=== PATIENT | female | born 1950 | race African-American/Black ===

== ENCOUNTER → 2016-11-07 | Outpatient (CLI) | payer BC ==
[~2016-11-07] MED LIST: ACET-1256 PO; ALBUAER2 INH; ASPI325T39 PO; CHOL2000 PO; CLR10 PO; FLUT0.15; IBUP-1050 PO; MOME1AER5 INH; MONT1TAB3 PO; MULT-506 PO; SIMV20TA2 PO
--- NOTE | 2016-11-08 13:19 | MAMMOGRAPHY REPORT ---
BILATERAL DIGITAL SCREENING MAMMOGRAM TOMOSYNTHESIS WITH CAD: 11/07/2016 CLINICAL HISTORY: Routine screening. TECHNIQUE: Breast tomosynthesis in addition to standard 2D mammography was performed. Current study was also evaluated with a Computer Aided Detection (CAD) system. COMPARISON: Comparison is made to exams dated: 11/03/2015 mammogram, 10/31/2014 mammogram, 10/30/2013 m ammogram, 10/29/2012 mammogram, 10/27/2011 mammogram, and 10/25/2010 mammogram - [facility]. BREAST COMPOSITION: The tissue of both breasts is heterogeneously dense, which may obscure small ma sses. FINDINGS: Linear scar markers overlie the right upper outer quadrant and left inferior breast. The parenchymal pattern is similar to prior mammograms area there are minimal vascular calcifications an d scattered benign-appearing punctate microcalcifications in the breasts. No developing mass, archi tectural distortion or cluster of suspicious microcalcifications is seen. IMPRESSION: ACR BI-RADS CATEGORY 2: BENIGN There is no mammographic evidence of malignancy. A 1 year screening mammogram is recommended. The p atient will receive written notification of the results. Approximately 10% of breast cancers are not detected with mammography. A negative mammographic repor t should not delay biopsy if a clinically suggestive mass is present. Adelina Land M.D. ay/:11/07/2016 17:21:45 Director Of Operations For Therapy: Shaneka HARRIS)(Rey), [facility] letter sent: Normal 1/2 BI-RADS Code: ACR BI-RADS Category 2: Benign
== END | disposition home or self-care (01) ==
LOC: C.MAMM 09:26
PROVIDERS: ATTEND Family Medicine
DX: Z12.31 Encounter for screening mammogram for malignant neoplasm of breast (principal)

== ENCOUNTER → 2017-03-23 | Outpatient (CLI) | payer BC ==
--- NOTE | 2017-03-23 09:27 | DIAGNOSTIC IMAGING REPORT ---
PELVIC ULTRASOUND, TRANSABDOMINAL AND TRANSVAGINAL HISTORY: Right lower quadrant of the middle pain. COMPARISON: Pelvic ultrasound 05/29/2015. FINDINGS: Uterus: 6.8 x 4.6 x 3.7 cm. Hyperechoic lesion within the posterior wall of the uterus measuring 1.4 cm. This demonstrates posterior shadowing and likely represents a calcified fibroid. There is a 6 mm nabothian cyst. Endometrial stripe: Normal in thickness measuring 2 mm. This contains a trace amount of fluid, unchanged. There may be a few small echogenic nodules with the endometrium measuring up to 3 mm. These are best in image 15. Right ovary: Obscured by overlying bowel gas. Left ovary: Obscured by overlying bowel gas. Miscellaneous:No pelvic free fluid. IMPRESSION: 1. A 1.4 cm calcified uterine fibroid is again noted. 2. Endometrial stripe is normal in thickness and contains a trace amount of fluid which is unchanged. There may be a few small echogenic nodules/debris within the endometrium measuring up to 3 mm. Gynecologic consultation and/or 3 month follow-up can be performed for further evaluation. 3. The ovaries were not visualized due to overlying bowel gas. Electronically signed by: Delfino Schafer M.D. 03/23/2017 9:26 AM Dictated Date/Time: 03/23/2017 9:22 AM
--- NOTE | 2017-03-23 09:30 | DIAGNOSTIC IMAGING REPORT ---
ABDOMINAL ULTRASOUND COMPLETE HISTORY: Right lower quadrant abdominal pain.. COMPARISON: None. FINDINGS: Pancreas: The pancreatic tail is obscured by overlying bowel gas. The remaining portions of the pancreas are within normal limits. Liver: There is a 1.6 x 1.4 x 1.3 cm hyperechoic lesion within the right hepatic lobe. This especially indeterminate but statistically represents a hemangioma. This demonstrates mild posterior acoustic enhancement. Gallbladder: There are 2 polyps with the largest measuring 9 mm. No gallstones. No gallbladder wall thickening. CBD: 4 mm. Kidneys: No hydronephrosis. Spleen: Normal in size. Aorta: Normal in caliber. IVC: Patent. IMPRESSION: 1. There are 2 gallbladder polyps with the largest measuring 9 mm. No gallbladder wall thickening. No gallstones. 2. A 1.6 cm hyperechoic lesion within the right hepatic lobe. This is technically indeterminate but likely represents a hemangioma. Electronically signed by: Delfino Schafer M.D. 03/23/2017 9:28 AM Dictated Date/Time: 03/23/2017 9:26 AM
== END | disposition home or self-care (01) ==
LOC: C.ULTR 07:54
PROVIDERS: ATTEND Family Medicine
DX: R10.11 Right upper quadrant pain (principal); R10.31 Right lower quadrant pain; R14.0 Abdominal distension (gaseous); Z83.79 Family history of other diseases of the digestive system; K82.4 Cholesterolosis of gallbladder; K76.9 Liver disease, unspecified; D25.9 Leiomyoma of uterus, unspecified

== ENCOUNTER → 2017-10-24 | Outpatient (CLI) | payer BC ==
[~2017-10-24] MED LIST changes: +CHOL1000 PO; +FLUT1SPR12 NAE; +HYDR25TA5 PO; +VNTHFA/IN INH
--- NOTE | 2017-10-24 09:44 | DIAGNOSTIC IMAGING REPORT ---
RIGHT THIRD FINGER 3 VIEWS CLINICAL HISTORY: Right third finger pain COMPARISON: None. DISCUSSION: No acute fractures are visualized. There is joint space narrowing and osteophyte formation at the level the distal interphalangeal joint. There is no erosive disease. IMPRESSION: 1. Osteoarthritic changes most pronounced the level of the distal interphalangeal joint. No evidence of erosive disease 2. No acute fractures Electronically signed by: Kirby Sandoval M.D. 10/24/2017 9:42 AM Dictated Date/Time: 10/24/2017 9:39 AM
== END | disposition home or self-care (01) ==
LOC: C.RAD1850 09:21
PROVIDERS: ATTEND Nurse Practitioner Family
DX: M79.644 Pain in right finger(s) (principal)

== ENCOUNTER → 2017-10-25 | Outpatient (CLI) | payer BC ==
--- NOTE | 2017-10-25 10:34 | DIAGNOSTIC IMAGING REPORT ---
R EXTREMITY NONVASCULAR LIMITED CLINICAL HISTORY: 67 years-old Female presenting with FOREIGN BODY IN RT MIDDLE FINGER. TECHNIQUE: Real-time grayscale Doppler ultrasound imaging of the right third finger was performed for a focused evaluation at the site of clinical concern. COMPARISON: Plain radiographs of the right third finger from the previous day. FINDINGS: At the site of clinical interest along the distal aspect of the right third finger, a linear hyperechogenic nonshadowing 5 mm foreign body is evident in the subcutaneous tissue. No surrounding fluid. No focal fluid collection. IMPRESSION: 1. Foreign body within the subcutaneous tissue of the distal right third finger at the site of clinical concern. Electronically signed by: Carlos Phan M.D. 10/25/2017 10:33 AM Dictated Date/Time: 10/25/2017 10:30 AM
== END | disposition home or self-care (01) ==
LOC: C.ULTRBC 09:43
PROVIDERS: ATTEND Student in an Organized Health Care Education/Training Program
DX: S60.452A Superficial foreign body of right middle finger, initial encounter (principal); X58.XXXA Exposure to other specified factors, initial encounter

== ENCOUNTER → 2017-11-08 | Outpatient (CLI) | payer BC ==
[~2017-11-08] MED LIST changes: -ACET-1256 PO; -ALBUAER2 INH; +ASPECOTC PO; -ASPI325T39 PO; -CHOL2000 PO; -FLUT0.15; -IBUP-1050 PO
--- NOTE | 2017-11-08 15:13 | MAMMOGRAPHY REPORT ---
BILATERAL DIGITAL SCREENING MAMMOGRAM TOMOSYNTHESIS WITH CAD: 11/08/2017 CLINICAL HISTORY: Routine screening. Patient has no complaints. TECHNIQUE: Breast tomosynthesis in addition to standard 2D mammography was performed. Current study was also evaluated with a Computer Aided Detection (CAD) system. COMPARISON: Comparison is made to exams dated: 11/07/2016 mammogram, 11/03/2015 mammogram, 10/31/2014 m ammogram, 10/30/2013 mammogram, 10/29/2012 mammogram, and 10/27/2011 mammogram - [facility]. BREAST COMPOSITION: The tissue of both breasts is heterogeneously dense, which may obscure small mas ses. FINDINGS: No suspicious masses, calcifications, or areas of architectural distortion are noted in ei ther breast. There has been no significant interval change compared to prior exams. IMPRESSION: ACR BI-RADS CATEGORY 1: NEGATIVE There is no mammographic evidence of malignancy. A 1 year screening mammogram is recommended. The pa tient will receive written notification of the results. Approximately 10% of breast cancers are not detected with mammography. A negative mammographic report should not delay biopsy if a clinically suggestive mass is present. Rhianna Rivera M.D. ah/:11/08/2017 12:27:15 Garbage Worker: Carmella ENRIQUEZ(Laz)(M), [facility] letter sent: Normal 1/2 BI-RADS Code: ACR BI-RADS Category 1: Negative
== END | disposition home or self-care (01) ==
LOC: C.MAMM 09:22
PROVIDERS: ATTEND Family Medicine
DX: Z12.31 Encounter for screening mammogram for malignant neoplasm of breast (principal)

== ENCOUNTER → 2017-11-08 | Outpatient (CLI) | payer BC | END | disposition home or self-care (01) | LOC: C.CPL 10:08 | PROVIDERS: ATTEND Physician Assistant | DX: S60.45 Superficial foreign body of fingers (principal); X58.XXXD Exposure to other specified factors, subsequent encounter ==

== ENCOUNTER → 2017-11-10 | Day surgery (SDC) | payer BC ==
[2017-11-03 12:36] VITALS: Ht 166.4 cm; Wt 68.2 kg
[~2017-11-10] VITALS: Ht 166.4 cm; Wt 68.2 kg
[~2017-11-10] MED LIST changes: +ATROPINE SULFATE 0.1 MG/ML 5ML SYR IV PRN; +BUPIVACAINE 0.5 % 5 MG/1 ML MPF 30ML VIAL ONE; +CEFAZOLIN 1000MG IV PUSH 7.5 ML IV SCH; +EpHEDrine SULFATE INJ 50 MG/ML AMP IV PRN; +FENTANYL CITRATE INJ 50 MCG/1 ML 2 ML VIAL IV PRN; +FENTANYL CITRATE INJ 50 MCG/1 ML 2 ML VIAL ONE; +HYDROmorphone INJ 2 MG/ML SYR/VIAL IV PRN; +LACTATED RINGER'S 1000ML 1,000 ML IV SCH; +LIDOCAINE HCL 1% 20 ML VIAL ONE; +MIDAZOLAM HCL 1 MG/ML 2ML VIAL ONE; +MoRPHine SULFATE 2 MG/ML CARP IV PRN; +MoRPHine SULFATE 4 MG/ML 1 ML CARP\\VIAL IV PRN; +ONDANSETRON INJ 2 MG/ML 2 ML VIAL IV PRN; +ONDANSETRON INJ 2 MG/ML 2 ML VIAL ONE; +OXYCODONE/ACETAMINOPHEN 5-325 TAB PO PRN; +PROMETHAZINE HCL INJ 12.5 MG in SODIUM CHLORIDE 0.9% 50ML 50 ML IV PRN
--- NOTE | 2017-11-10 07:29 | History & Physical Bridge - SC ---
H&P Re-Evaluation Bridge Note: I have examined the patient, reviewed the History & Physical and in the interval since the performance of the History & Physical I have noted the following changes of clinical significance: No changes noted
--- NOTE | 2017-11-10 08:08 | [facility] Post Operative Brief Note ---
Immediate Operative Summary Operative Date Nov 10, 2017. Pre-Operative Diagnosis Right middle finger foreign body Post-Operative Diagnosis Same as pre-op Procedure(s) Performed Right Middle Finger Foreign Body Removal Surgeon Life Manager Surgeon(s) Dr. Valentine COLON Estimated Blood Loss 2ML Findings Consistent with Post-Op Diagnosis Fluids (cc crystalloids) 450 Specimens A.Right middle finger foreign body Drains None Anesthesia Type MAC Complication(s) none Disposition Disposition: Recovery Room / PACU (stable)
--- NOTE | 2017-11-10 08:11 | Discharge Instructions-SurgCtr ---
Discharge Instructions Date of Service Nov 10, 2017. Visit Reason for Visit: Right Middle Finger Foreign Body Discharge Discharge Diagnosis / Problem: Right Middle Finger Foreign Body Removal Discharge Goals Goal(s): Decrease discomfort, Improve function, Increase independence Activity Recommendations Activity Limitations: per Instructions/Follow-up section Exercise/Sports Limitations: rest today Shower/Bathe: may shower/bathe in 3 days (Do not submerge for 3 weeks) Driving or Machine Use: Not while on narcotics Anesthesia . Post Anesthesia Instructions: If you have had General Anesthesia or IV Sedation: * Do not drive today. * Resume driving when surgeon permits. * Do not make important decisions or sign legal documents today. * Call surgeon for: 1. Temperature elevations greater than 101 degrees F. 2. Uncontrollable pain. 3. Excessive bleeding. 4. Persistent nausea and vomiting. 5. Medication intolerance (nausea, vomiting or rash). * For nausea and vomiting use only clear liquids such as: tea, soda, bouillon until nausea subsides, then gradually increase diet as tolerated. * If you have any concerns or questions, call your surgeon's office. If physician is unavailable and it is an emergency, call 911 or go to the nearest emergency room. . Instructions / Follow-Up Instructions / Follow-Up With PA in 3 days 11/13/17 @ 10:15. Dr. Thomas 11/22/2017 @ 10:45. Diet Recommendations Home Diet: resume previous diet Procedures Procedures Performed: Right Middle Finger Foreign Body Removal Pending Studies Studies pending at discharge: no Medical Emergencies . Who to Call and When: Medical Emergencies: If at any time you feel your situation is an emergency, please call 911 immediately. . Non-Emergent Contact Non-Emergency issues call your: Surgeon Call Non-Emergent contact if: temperature is above 101.5, your pain is not controlled, wound has increased drainage, wound has increased redness . . "Provider Documentation" section prepared by Edil Thomas. .
--- NOTE | 2017-11-10 08:12 | [facility] Operative Report ---
Operative Report Operative Date Nov 10, 2017. Pre-Operative Diagnosis Right middle finger foreign body Post-Operative Diagnosis Same as pre-op Procedure(s) Performed Right Middle Finger Foreign Body Removal Surgeon Chicken Buyer Surgeon(s) Dr. Valentine COLON Estimated Blood Loss 2ML Findings Thin, Clear Plastic foreign body ~ 1-1.5 cm long Fluids 450 Specimens A.Right middle finger foreign body Drains None Anesthesia Type MAC Complication(s) none Disposition Recovery Room / PACU (stable) Indications The patient is a 67 year old female with a painful foreign body in her right middle finger. The patient understands the risks of surgery, which include but are not limited to: bleeding, infection, re-operation, damage to nerves and arteries, and continued pain. The patient understands all of these instructions and explanations, all of their questions have been satisfactorily addressed. The patient has elected to proceed with surgery and the informed consent was signed. Description of Procedure The patient was taken to the Operating Room and placed in the supine position on the operating table. After a multidisciplinary time-out was performed identifying my initials on the right upper extremity as the correct and operative limb. Prior to the incision being made, 1 gram of intravenous Ancef was given. A digital block was performed after prepping the third metacarpal head with Betadine and then 5 cc of a 50-50 mixture of 1% lidocaine and half percent Marcaine both plain was injected. The The right arm was prepped and draped in the usual Orthopaedic sterile fashion. A finger tourniquet was placed. After the local anesthetic had taken affect, a small 1.5 cm incision was made at the tip of the palpable foreign body and carried in line with her finger prints proximally. The small thin, clear plastic was removed in 2 pieces. The skin was and subcutaneous fat was debrided with pickups and curettes. The wound was copiously irrigated. The skin was closed with Dermabond. Once that had try Steri-Strips were placed overtop. The finger was further covered with 1 inch Skylar and band. The patient was taken to the recovery room in stable condition. The sponge and needle counts were correct. Postop instructions: The patient will remove the dressing in 48 hours. They can resume all her usual activities, but are not to submerge the wound for 3 weeks. I attest to the content of the Intraoperative Record and any orders documented therein. Any exceptions are noted below.
[2017-11-10 08:15] VITALS: TEMP 36.4
--- NOTE | 2017-11-10 08:36 | Anesthesia Progress Nt - [facility] ---
Anesthesia Post Op Note Date & Time Nov 10, 2017 at 08:36 Vital Signs Pain Intensity: 0 Vital Signs Past 12 Hours Date Time Temp Pulse Resp B/P (MAP) Pulse Ox O2 Delivery O2 Flow Rate FiO2 11/10/17 08:15 36.4 65 14 112/72 (85) 95 Room Air 11/10/17 06:40 36.1 59 18 110/75 (87) 100 Room Air Notes Mental Status: alert / awake / arousable, participated in evaluation Pt Amnestic to Procedure: Yes Nausea / Vomiting: adequately controlled Pain: adequately controlled Airway Patency, RR, SpO2: stable & adequate BP & HR: stable & adequate Hydration State: stable & adequate Anesthetic Complications: no major complications apparent awake, doing well, VSS. No complaints.
[2017-11-10 08:41] VITALS: BP 110/69; PULSE 57; O2SAT 100
== END | disposition home or self-care (01) ==
LOC: X.SURG 06:24
PROVIDERS: ATTEND Orthopaedic Surgery Sports Medicine
DX: S61.241A Puncture wound with foreign body of left index finger without damage to nail, initial encounter (principal); W45.8XXA Other foreign body or object entering through skin, initial encounter; Y93.D2 Activity, sewing; G47.30 Sleep apnea, unspecified; J45.909 Unspecified asthma, uncomplicated; E78.00 Pure hypercholesterolemia, unspecified; Z79.899 Other long term (current) drug therapy; Z79.82 Long term (current) use of aspirin; Z88.7 Allergy status to serum and vaccine; Z80.0 Family history of malignant neoplasm of digestive organs; Z83.3 Family history of diabetes mellitus; Z82.3 Family history of stroke

== ENCOUNTER 2019-12-24 13:56 | Observation (INO) ==
--- NOTE | 2019-12-24 15:38 | Emergency Department Note ---
ED Visit Note My name is Cortez Hart D.O. PGY-2, and I was involved in the care of this patient under attending ED physician Dr. Sunshine. . Resident Activity Tracking Resident Involvement: Resident Care Provided Care Provided: Adult ED
[2019-12-24 16:00] LABS: Basophils # (auto) 0.02 K/uL (0-0.2); Basophils % (auto) 0.3 %; Eosinophils # (auto) 0.05 K/uL (0-0.5); Eosinophils % (auto) 0.8 %; Hematocrit (blood only) 39.8 % (37-47); Hemoglobin 13.5 g/dL (12.0-16.0); Lymphocytes # (auto) 1.63 K/uL (1.2-3.4); Lymphocytes % (auto) 27.2 %; Mean Corpuscular Hemoglobin 30.9 pg (25-34); Mean Corpuscular Hgb Conc 33.9 g/dL (32-36); Mean Corpuscular Volume 91.1 fL (80-100); Mean Platelet Volume 9.9 fL (7.4-10.4); Monocytes # (auto) 0.36 K/uL (0.11-0.59); Neutrophils # (auto) 3.93 K/uL (1.4-6.5); Neutrophils % (auto) 65.7 %; Platelet Count 183 K/uL (130-400); RDW Coefficient of Variation 13.1 % (11.5-14.5); RDW Standard Deviation 43.5 fL (36.4-46.3); Red Blood Count 4.37 M/uL (4.2-5.4); White Blood Count 5.99 K/uL (4.8-10.8)
--- NOTE | 2019-12-24 16:03 | XRay Report ---
XR chest 1V portable HISTORY: Atypical Chest Pain COMPARISON: Chest 01/23/2016. FINDINGS: Possible 6 mm nodule within the right upper lobe. This is new from the prior study. No new focal lung consolidations to suggest pneumonia. No evidence for pulmonary edema. No pleural effusions . No pneumothorax. The heart is normal in size. IMPRESSION: Possible 6 mm nodule within the right upper lobe. Follow-up nonemergent chest CT is recommended for f urther evaluation. ACT 112: Negative or not required by law. Electronically signed by: Delfino Schafer M.D. 12/24/2019 4:01 PM
[2019-12-24 16:08] LABS: Partial Thromboplastin Time 26.7 Seconds (21.0-31.0); Prothrombin Time 10.5 Seconds (9.0-12.0)
[2019-12-24 16:16] LABS: Alanine Aminotransferase 36 U/L (12-78); Albumin Level 4.1 gm/dl (3.4-5.0); Aspartate Aminotransferase 18 U/L (15-37); BUN Creatinine Ratio 12.5 (10-20); Blood Urea Nitrogen 11 mg/dl (7-18); Carbon Dioxide 29 mmol/L (21-32); Chloride 107 mmol/L (98-107); Creatinine Clr Calc Pharmacy 56.5 ml/min; Est GFR (African American) 74.1; Est GFR (Non-African American) 63.9; Glucose 86 mg/dl (70-99); Lipase 238 U/L (73-393); Magnesium 2.5 mg/dl (1.8-2.4); Potassium 3.8 mmol/L (3.5-5.1); Sodium 140 mmol/L (136-145)
--- NOTE | 2019-12-24 16:17 | Emergency Department Note ---
History of Present Illness General Chief complaint: Illness Stated complaint: ILLNESS,DOC REFERRED Time Seen by Provider: 12/24/19 15:18 Source: patient History of Present Illness Provider complaint: Chest discomfort Onset (ago): day(s) 2 Location: chest Radiation: other (Jaw and left arm) Severity: mild Maximum Pain Intensity: 3 Quality: + burning and + other (Heaviness) Exacerbated By: + none Associated symptoms: + shortness of breath; no fever/chills, no headaches and no nausea/vomiting This is a 69-year-old female who presents with intermittent chest discomfort. She describes it as sometimes a heaviness and sometimes a burning. She also has associated pain to her jaw which can be on the right side or left side at times. She describes it as a soreness which she can reproduce with palpation. She does states she has 3 dental caries but does not feel it is related. She also states she has pain in her left arm when she has her chest pain as well but describes it as more a muscle ache thinking that she might of done more recently but no specific activity is recalled. She is right-hand dominant. She has been burping more frequently as well but denies any significant abdominal pain. She came here because she was concerned due to a strong family history of cardiac disease. She has no history of CAD but has had an ablation for dysrhythmia. She does have high cholesterol. Home Medications Home Medications Medication Instructions Recorded Confirmed Type MONTELUKAST SODIUM (SINGULAIR) 10 mg PO QPM #0 tab 01/23/16 History Mometasone Furoate (Inhalation 1 puff INHALATION BID #0 01/23/16 History (Asmanex Hfa) Simvastatin (Zocor) 20 mg PO QPM #0 tab 01/23/16 History ALBUTEROL HFA (VENTOLIN HFA) 2 - 4 puff INHALATION Q6H PRN #1 11/03/17 History inhaler CHOLECALCIFEROL (VITAMIN D3) 1 tab PO QAM #0 tab 11/03/17 History Fluticasone Propionate (Nasal) 1 spray ANOOP HS #0 11/03/17 History (Flonase Allergy Relief Ch) Hydrochlorothiazide 12.5 mg PO QAM #0 11/03/17 History Loratadine (Claritin) 10 mg PO QPM #0 tab 11/03/17 History Multivitamin 1 tab PO QAM #0 tab 11/03/17 History ASPIRIN 325 mg PO #0 11/10/17 History Allergies Allergy/AdvReac Type Severity Reaction Status Date / Time tetanus immune globulin Allergy Unknown ARM Verified 11/10/17 06:35 SWELLING Dust Allergy Intermediate SOB, Uncoded 11/10/17 06:35 WHEEZY, SNEEZING Past Med/Surg History Medical History High cholesterol Surgical History History of cardiac radiofrequency ablation Social History Feels Safe at Home: Yes Smoking Status: Never smoker Review of Systems See HPI for pertinent positives & negatives. and A total of 10 systems reviewed and were otherwise negative Physical Exam Vital Signs Vital Signs - 24 hr 12/24/19 14:16 12/24/19 15:39 12/24/19 15:41 Temperature 36.9 C Temperature Source Oral Pulse Rate 75 65 64 Pulse Rate [Finger] Pulse Rate from SpO2 Sensor 64 64 Respiratory Rate 16 14 10 L Blood Pressure 117/82 176/75 H Blood Pressure [Right Arm] Blood Pressure Mean 93 83 Blood Pressure Mean [Right Arm] Pulse Oximetry 99 97 97 Oxygen Delivery Method Room Air Room Air Room Air Sepsis Recent Fever Within 48 Hours No Sepsis New/Unexplained Change in Mental Status No Sepsis Action Taken by Nursing No Action Required 12/24/19 15:45 12/24/19 16:38 Temperature Temperature Source Pulse Rate Pulse Rate [Finger] 70 Pulse Rate from SpO2 Sensor Respiratory Rate 19 Blood Pressure Blood Pressure [Right Arm] 121/74 Blood Pressure Mean Blood Pressure Mean [Right Arm] 89 Pulse Oximetry 98 Oxygen Delivery Method Room Air Room Air Sepsis Recent Fever Within 48 Hours Sepsis New/Unexplained Change in Mental Status Sepsis Action Taken by Nursing Constitutional: Vital signs reviewed. Eyes: Pupils are equal round reactive to light. Conjunctiva are noninjected. ENT: Pharynx is clear without erythema or exudate. Mucous membranes are moist. No jaw tenderness or swelling. Neck supple without meningeal signs. Respiratory: Clear to auscultation bilaterally. Breath sounds are equal bilaterally. Cardiovascular: Regular rate and rhythm. No rubs or gallops. GI: Soft, nondistended and nontender. Bowel sounds are present. Musculoskeletal: No peripheral edema. No lower extremity tenderness. Integumentary: No cyanosis. or jaundice. Neurological: The patient is awake and alert. No focal deficits. Psychiatric: Normal affect. Not anxious appearing. Medical Decision Making Differential Diagnosis GERD, cholelithiasis, unstable angina, CT, pleurisy Medical Records Attestation: I reviewed the patient's medical records. I did perform a limited focused review of portions of the patient's old chart on the electronic medical record. The patient has had no recent pertinent visits to this hospital. Home Medications Current Medication List: was personally reviewed by me Laboratory Data Attestation: I reviewed the patient's lab results. Result diagrams: 12/24/19 15:39 12/24/19 15:39 Lab Results 12/24/19 12/24/19 12/24/19 Range/Units 15:39 15:39 15:39 WBC 5.99 (4.8-10.8) K/uL RBC 4.37 (4.2-5.4) M/uL Hgb 13.5 (12.0-16.0) g/dL Hct 39.8 (37-47) % MCV 91.1 (80-100) fL MCH 30.9 (25-34) pg MCHC 33.9 (32-36) g/dL RDW Std Deviation 43.5 (36.4-46.3) fL RDW Coeff of Miguel 13.1 (11.5-14.5) % Plt Count 183 (130-400) K/uL MPV 9.9 (7.4-10.4) fL Immature Gran % (Auto) 0.0 % Neut % (Auto) 65.7 % Lymph % (Auto) 27.2 % [place] % (Auto) 6.0 % Eos % (Auto) 0.8 % Baso % (Auto) 0.3 % Immature Gran # (Auto) 0.00 (0.00-0.02) K/uL Neut # (Auto) 3.93 (1.4-6.5) K/uL Lymph # (Auto) 1.63 (1.2-3.4) K/uL [place] # (Auto) 0.36 (0.11-0.59) K/uL Eos # (Auto) 0.05 (0-0.5) K/uL Baso # (Auto) 0.02 (0-0.2) K/uL PT 10.5 (9.0-12.0) Seconds INR 1.0 (0.9-1.1) APTT 26.7 (21.0-31.0) Seconds PTT Ratio 1.0 Sodium 140 (136-145) mmol/L Potassium 3.8 (3.5-5.1) mmol/L Chloride 107 (98-107) mmol/L Carbon Dioxide 29 (21-32) mmol/L Anion Gap 4.0 (3-11) BUN 11 (7-18) mg/dl Creatinine 0.91 (0.6-1.2) mg/dl Est Cr Clr Drug Dosing 56.5 ml/min Est GFR ( Amer) 74.1 Est GFR (Non-Af Amer) 63.9 BUN/Creatinine Ratio 12.5 (10-20) Glucose 86 (70-99) mg/dl Calcium 10.0 (8.5-10.1) mg/dl Magnesium 2.5 H (1.8-2.4) mg/dl Total Bilirubin 0.8 (0.2-1) mg/dl AST 18 (15-37) U/L ALT 36 (12-78) U/L Alkaline Phosphatase 74 (45-117) U/L Troponin I < 0.015 (0-0.045) ng/ml Total Protein 7.6 (6.4-8.2) gm/dl Albumin 4.1 (3.4-5.0) gm/dl Globulin 3.5 (2.5-4.0) gm/dl Albumin/Globulin Ratio 1.2 (0.9-2) Lipase 238 (73-393) U/L Imaging Data Radiologist's Impression: XR chest 1V portable HISTORY: Atypical Chest Pain COMPARISON: Chest 01/23/2016. FINDINGS: Possible 6 mm nodule within the right upper lobe. This is new from the prior study. No new focal lung consolidations to suggest pneumonia. No evidence for pulmonary edema. No pleural effusions. No pneumothorax. The heart is normal in size. IMPRESSION: Possible 6 mm nodule within the right upper lobe. Follow-up nonemergent chest CT is recommended for further evaluation. ACT 112: Negative or not required by law. Electronically signed by: Delfino Schafer M.D. 12/24/2019 4:01 PM ECG Data Attestation: I personally reviewed and interpreted this ECG as follows: Indication: + chest pain Rate (beats per minute): 69 Rhythm: + normal sinus ECG Intervals/blocks: no Left bundle branch block ECG ST segments: no ST elevation ECG Findings: no PVCs Blood Pressure Blood Pressure Findings: Elevated blood pressure Blood Pressure Disposition: further management by hospitalist MDM Narrative I did evaluate the patient as noted above. The patient is presenting with chest discomfort with associated jaw and arm discomfort. She has multiple risk factors including hypertension, high cholesterol and family history. She has a heart score of 4. She is not currently having any chest discomfort. IV access was established. I did place an order for continuous cardiac monitoring. The monitor showed sinus rhythm rate of 70. I did order and personally review the patient's 12-lead EKG as described above. She has no evidence of acute ischemi a. I did order and review the patient's blood work as noted in the electronic medical record. CBC is unremarkable without leukocytosis or anemia. Electrolytes are unremarkable. LFTs are within normal limits and there is no elevation of the lipase. Troponin is negative. The test results were discussed with the patient. Given her multiple risk factors she will be hospitalized for repeat cardiac biomarkers and further evaluation. The case was discussed with the hospitalist and ed case manager. She is not currently having any chest discomfort. Resident Physician Supervision Note: I did perform an independent evaluation and examination of this patient as described. I also saw this patient in conjunction with the resident, Dr. Hart, and guided management for the patient. Impression & Plan Chest pain Discharge Plan Visit Data Chief Complaint: Illness Stated Complaint: ILLNESS,DOC REFERRED ED Provider: French Sunshine ED Midlevel Provider: Cortez Hart Discharge Problem: Chest pain Patient Disposition: Being Evaluated by Hospitalist Forms Stand Alone Forms: [facility] [employer] Prescriptions Prescriptions: No Action MONTELUKAST SODIUM (SINGULAIR) 10 MG tablet 10 mg PO QPM Qty: 0 RF: 0 Mometasone Furoate (Inhalation (Asmanex Hfa) 200 MCG/ACT AER 1 puff Inhalation BID Qty: 0 RF: 0 Simvastatin (Zocor) 20 MG tablet 20 mg PO QPM Qty: 0 RF: 0 ALBUTEROL HFA (VENTOLIN HFA) 200 PUFFS/18,000 MCG AEROSOL,SOLN 2 - 4 puff Inhalation Q6H PRN (Reason: Shortness of Breath) Qty: 1 RF: 0 CHOLECALCIFEROL (VITAMIN D3) 1,000 UNIT tablet 1 tab PO QAM Qty: 0 RF: 3 Fluticasone Propionate (Nasal) (Flonase Allergy Relief Ch) 50 MCG/ACT SPR 1 spray ANOOP HS Qty: 0 RF: 0 Hydrochlorothiazide 25 MG tablet 12.5 mg PO QAM Qty: 0 RF: 0 Loratadine (Claritin) 10 MG tablet 10 mg PO QPM Qty: 0 RF: 0 Multivitamin tablet 1 tab PO QAM Qty: 0 RF: 0 ASPIRIN 325 MG tablet 325 mg PO Qty: 0 RF: 0 Referrals Referrals: Eze Knight MD [Primary Care Provider] -
[2019-12-24 16:21] LABS: Albumin Globulin Ratio 1.2 (0.9-2); Alkaline Phosphatase 74 U/L (45-117); Bilirubin,Total 0.8 mg/dl (0.2-1); Globulin 3.5 gm/dl (2.5-4.0); Total Protein 7.6 gm/dl (6.4-8.2); Troponin I < 0.015 ng/ml (0-0.045)
--- NOTE | 2019-12-24 17:18 | History & Physical Report ---
Date of Service December 24, 2019 Assessment & Plan (1) Chest pain: * Obs tele --?if related to increased PACs leading to afib vs gerd vs asthma vs acs * Serial troponin * I&O, Daily weights * Nitro prn * EKG in AM * ECHO pending -- previous ECHO Mar 2016 normal * GI cocktail x 1 * AHA diet * Discussed case with application support intern -> if need, can contact him in AM for consult if trop elevated/changes (2) Palpitations: * Noted increased frequency of palpitations leading to admission * Follow on telemetry * Starting diltiazem as per cardiology recommendation (3) History of cardiac radiofrequency ablation: * Follows locally with Dr. Dunlap * Cardiology consult as above -- appreciate rec * Will start on cardizem 30mg BID (avoid BB given hx asthma) -- monitor on telemetry * Will check TSH to monitor (4) High cholesterol: * Continue home simvastatin 20mg (5) Low calcium levels: * Follows with PCP Dr. Knight. * Continue home HCTZ 12.5mg MWF, alendronate 70mg weekly (6) Asthma: * Stable -- per patient, her inhaler did not have any result in any relief of symptoms * Continue home albuterol, flonase, singulair, asmanex (7) DVT prophylaxis: * Low risk * SCD * Lovenox SQ Dispo: possible discharge tomorrow if trop/echo negative and symptoms resolved. patient from home with . History of Present Illness Chief Complaint: Chest Heaviness, Palpitations Primary Care Provider: Eze Knight MD 69 female with PMH significant for AVNRT (s/p ablation 2015), asthma, low calcium with strong family history for CAD/MS presented to the emergency room with increased chest heaviness/pressure that felt as if she was unable to take a deep breath, along with associated radiation of pain to left arm and jaw. Patient states she has a history of ablation of irregular rhythm and follows locally with Dr. Dunlap. She states following her ablation she was only having palpitations approximately 3x/week and she has been experiencing this sensation 3-4 times per hour along with associated belching. She states she has a history of asthma and thought this may be related, so she tried using her ProAir HFA 1- 2x without relief of symptoms. Symptoms wax and wane and occur at both rest and with activity. No provoking or alleviating factors. Denies history of cavities, but states she did notice some increased sensation with cold liquids several days ago. Denies fever or chills, shortness, cough or sputum production. She states she has had some hoarseness of her voice but attributes this to increased mucus production with her allergies/asthma. She denies chest pain currently, but states she does have a pressure and admits to several palpitations during our conversation. ER Course: Labs only significant for mag elevated at 2.5. CXR with 6mm nodule RUL. No evidence for effusion, edema or pneumothorax. EKG NSR with age undetermined anterior infarct, 69bpm. Allergies Allergy/AdvReac Type Severity Reaction Status Date / Time house dust mite Allergy Intermediate Shortness Verified 12/24/19 18:05 of breath,wheezy and sneezing tetanus immune globulin Allergy Unknown ARM Verified 12/24/19 18:05 SWELLING Home Medications Home Medications Medication Instructions Recorded Confirmed Type alendronate 70 mg PO WK 12/24/19 12/24/19 History cholecalciferol (vitamin D3) 2,000 unit PO QAM 12/24/19 12/24/19 History [Vitamin D3] fluticasone propionate [Flonase 2 spray INTRANASAL HS 12/24/19 12/24/19 History Allergy Relief] hydrochlorothiazide 12.5 mg PO 3XWK 12/24/19 12/24/19 History loratadine 10 mg PO QPM 12/24/19 12/24/19 History mometasone [Asmanex Twisthaler] 1 inh INHALATION BID 12/24/19 12/24/19 History montelukast 10 mg PO HS 12/24/19 12/24/19 History simvastatin 20 mg PO HS 12/24/19 12/24/19 History Past Med/Surg History Medical History (Updated 12/24/19 @ 21:37 by Freda Arriola MD) Allergies Asthma 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) High cholesterol Low calcium levels Surgical History History of cardiac radiofrequency ablation S/P left knee arthroscopy Family History Family/Other Coronary heart disease COPD (chronic obstructive pulmonary disease) Diabetes Dyslipidemia Hypertension Social History (Updated 12/24/19 @ 18:22 by Jaleesa Ludwig PA-C) Current Living Situation: Spouse Feels Safe at Home: Yes Smoking Status: Never smoker Hx Alcohol Use: No Hx Substance Use: No Review of Systems Review of Systems: All systems reviewed & are unremarkable except as noted in HPI & below Physical Exam Constitutional: WD/WN, vitals as above no acute distress Eyes: PERRL, conjunctivae normal, anicteric sclerae ENMT: middle/inferior turbinates boggy post nasal drip Neck: trachea midline, no thyromegaly Respiratory: normal respiratory effort, lungs clear to auscultation Cardiovascular: Rate/Rhythm: regular rate and regular rhythm (frequent PVCs noted on monitor) Vessels: no JVD Extremities: normal capillary refill; no calf tenderness and no edema Gastrointestinal (Abdomen): normal bowel sounds, soft, nontender, no hepatosplenomegaly Musculoskeletal: no cyanosis or clubbing, extremities motor strength 5/5 Skin: no rashes, warm and dry Neurologic: patellar DTR's 2+ bilat, sensation intact Psychiatric: A+Ox3, euthymic affect Lymphatic: no cervical or axillary lymphadenopathy Results & Data Results & Data ([facility]) Vital Signs (Past 12 Hours) Vital Signs Temp Pulse Pulse Resp BP BP Pulse Ox 12/24/19 16:38 70 19 121/74 98 12/24/19 15:41 64 10 L 97 12/24/19 15:39 65 14 176/75 H 97 12/24/19 14:16 36.9 C 75 16 117/82 99 Laboratory Results 12/24/19 12/24/19 12/24/19 Range/Units 15:39 15:39 15:39 WBC 5.99 (4.8-10.8) K/uL RBC 4.37 (4.2-5.4) M/uL Hgb 13.5 (12.0-16.0) g/dL Hct 39.8 (37-47) % MCV 91.1 (80-100) fL MCH 30.9 (25-34) pg MCHC 33.9 (32-36) g/dL RDW Std Deviation 43.5 (36.4-46.3) fL RDW Coeff of Miguel 13.1 (11.5-14.5) % Plt Count 183 (130-400) K/uL MPV 9.9 (7.4-10.4) fL Immature Gran % (Auto) 0.0 % Neut % (Auto) 65.7 % Lymph % (Auto) 27.2 % Hinds % (Auto) 6.0 % Eos % (Auto) 0.8 % Baso % (Auto) 0.3 % Immature Gran # (Auto) 0.00 (0.00-0.02) K/uL Neut # (Auto) 3.93 (1.4-6.5) K/uL Lymph # (Auto) 1.63 (1.2-3.4) K/uL Hinds # (Auto) 0.36 (0.11-0.59) K/uL Eos # (Auto) 0.05 (0-0.5) K/uL Baso # (Auto) 0.02 (0-0.2) K/uL PT 10.5 (9.0-12.0) Seconds INR 1.0 (0.9-1.1) APTT 26.7 (21.0-31.0) Seconds PTT Ratio 1.0 Sodium 140 (136-145) mmol/L Potassium 3.8 (3.5-5.1) mmol/L Chloride 107 (98-107) mmol/L Carbon Dioxide 29 (21-32) mmol/L Anion Gap 4.0 (3-11) BUN 11 (7-18) mg/dl Creatinine 0.91 (0.6-1.2) mg/dl Est Cr Clr Drug Dosing 56.5 ml/min Est GFR ( Amer) 74.1 Est GFR (Non-Af Amer) 63.9 BUN/Creatinine Ratio 12.5 (10-20) Glucose 86 (70-99) mg/dl Calcium 10.0 (8.5-10.1) mg/dl Magnesium 2.5 H (1.8-2.4) mg/dl Total Bilirubin 0.8 (0.2-1) mg/dl AST 18 (15-37) U/L ALT 36 (12-78) U/L Alkaline Phosphatase 74 (45-117) U/L Troponin I < 0.015 (0-0.045) ng/ml Total Protein 7.6 (6.4-8.2) gm/dl Albumin 4.1 (3.4-5.0) gm/dl Globulin 3.5 (2.5-4.0) gm/dl Albumin/Globulin Ratio 1.2 (0.9-2) Lipase 238 (73-393) U/L TSH Pending Code Status & VTE Plan Code Status Full code VTE Prophylaxis Plan VTE Prophylaxis will be ordered: Yes Supervising Physician Co-Signing Physician Notes DARLENE Supervision Note: I personally saw and examined the patient. I verified all nava points and agree with DARLENE Ludwig with the following exceptions and/or additions: This patient is a very pleasant 69-year-old female who presents with increasing frequency of heart palpitations that seem to be associated with the chest heaviness at times radiating to the jaw and arm on the left side. She reports sometimes she gets chest heaviness related to her asthma but her inhaler did not seem to make this better. It comes on at rest and with exertion. The most concerning symptom to her at this time is the palpitations. She normally used to walk 1 mile a day and go to the gym frequently, but has not been doing this last 2 months while in quarantine for COVID. History reviewed as above with a history of cardiac ablation for AVNRT ROS as above Vitals reviewed NAD, AAO x3 Anicteric sclerae, EOMI RRR, no MGR Lungs clear to auscultation bilaterally, no wheezes crackles or rhonchi Abdomen positive bowel sound soft nontender nondistended, no masses or hernias Extremities no edema, 2+ dorsalis pedis pulses, no calf tenderness Skin no rashes Neuro-moves all extremities well, no facial droop 69-year-old female here with heart palpitations and associated chest heaviness Rule out for acute coronary syndrome with serial troponin, follow on telemetry Resting echo-consider stress echocardiogram in the morning -Starting diltiazem for palpitations -Trial of GI cocktail for chest heaviness given that she is having more belching and could be dyspepsia -Needs outpatient follow-up for pulmonary nodule noted incidentally on chest x- ray PG Care Time/CCT Total # of Minutes Spent Total Time Spent with Patient: Total time spent is greater than 50% in coordination of care (as documented) at patient's floor/unit and/or counseling patient: Coding Level of Care Code 93550 OBS Care - Level 3 Diagnoses Chest pain R07.9 Palpitations R00.2 History of cardiac radiofrequency ablation Z98.890 High cholesterol E78.00 Low calcium levels E83.51 Asthma J45.909 DVT prophylaxis Z29.9
[2019-12-24] MEDS ORDERED: GI COCKTAIL ED USE PO ONE (18:19)
[2019-12-24 18:40] LABS: Thyroid Stimulating Hormone 0.521 uIu/ml (0.300-4.500)
[2019-12-24] MEDS ORDERED: FLUTICASONE PROPIONATE NA SPR 16 GM BTL SCH (21:00)
[2019-12-24] MEDS ORDERED: SIMVASTATIN 20 MG TAB PO SCH (21:00)
[2019-12-24] MEDS ORDERED: MONTELUKAST SODIUM 10 MG TABLET PO SCH (21:00)
[2019-12-24] MEDS ORDERED: ACETAMINOPHEN 325 MG TAB PO PRN (21:33)
[2019-12-24] MEDS ORDERED: ALUMINUM/MAGNESIUM SUSP 30 ML UDC PO PRN (21:33)
[2019-12-24] MEDS ORDERED: NITROGLYCERIN SL 0.4 MG/TAB TAB SL PRN (21:33)
[2019-12-24] MEDS ORDERED: ENOXAPARIN INJ 40 MG/0.4 ML SYR SQ SCH (22:00)
[2019-12-24] MEDS: dilTIAZem HCL 30 MG TAB PO SCH (22:11)
[2019-12-25 03:21] LABS: Basophils # (auto) 0.01 K/uL (0-0.2); Basophils % (auto) 0.2 %; Eosinophils # (auto) 0.07 K/uL (0-0.5); Eosinophils % (auto) 1.2 %; Hematocrit (blood only) 37.3 % (37-47); Hemoglobin 12.2 g/dL (12.0-16.0); Lymphocytes # (auto) 1.95 K/uL (1.2-3.4); Lymphocytes % (auto) 32.9 %; Mean Corpuscular Hemoglobin 29.5 pg (25-34); Mean Corpuscular Hgb Conc 32.7 g/dL (32-36); Mean Corpuscular Volume 90.1 fL (80-100); Mean Platelet Volume 9.5 fL (7.4-10.4); Monocytes # (auto) 0.44 K/uL (0.11-0.59); Monocytes % (auto) 7.4 %; Neutrophils # (auto) 3.46 K/uL (1.4-6.5); Neutrophils % (auto) 58.3 %; Platelet Count 151 K/uL (130-400); RDW Coefficient of Variation 13.1 % (11.5-14.5); RDW Standard Deviation 42.7 fL (36.4-46.3); Red Blood Count 4.14 M/uL (4.2-5.4); White Blood Count 5.93 K/uL (4.8-10.8)
[2019-12-25 03:45] LABS: BUN Creatinine Ratio 12.6 (10-20); Blood Urea Nitrogen 12 mg/dl (7-18); Carbon Dioxide 28 mmol/L (21-32); Chloride 109 mmol/L (98-107); Creatinine Clr Calc Pharmacy 54.8 ml/min; Est GFR (African American) 71.2; Est GFR (Non-African American) 61.5; Glucose 105 mg/dl (70-99); Potassium 4.1 mmol/L (3.5-5.1); Sodium 142 mmol/L (136-145)
[2019-12-25 03:49] LABS: Chol HDL Ratio 3; Cholesterol 172 mg/dl (0-200); HDL Cholesterol 55 mg/dl; LDL Cholesterol Calculated 94 mg/dl; Triglycerides 114 mg/dl (0-150); Troponin I < 0.015 ng/ml (0-0.045); VLDL Cholesterol 23 mg/dl
[2019-12-25] MEDS: dilTIAZem HCL 30 MG TAB PO SCH (07:57)
--- NOTE | 2019-12-25 08:51 | Electrocardiogram Report ---
Test Reason : Blood Pressure : / mmHG Vent. Rate : 069 BPM Atrial Rate : 069 BPM P-R Int : 158 ms QRS Dur : 100 ms QT Int : 374 ms P-R-T Axes : 041 006 049 degrees QTc Int : 400 ms Normal sinus rhythm Cannot rule out Anterior infarct , age undetermined Abnormal ECG When compared with ECG of 08-NOV-2017 10:16, No significant change was found Confirmed by Hamlet Samuel ([id number]) on 12/25/2019 8:51:34 AM Referred By: REFERRED SELF Confirmed By:Hamlet Samuel
[2019-12-25] MEDS ORDERED: CHOLECALCIFEROL 1,000 UNITS 25 MCG TAB PO SCH (09:00)
[2019-12-25] MEDS ORDERED: hydroCHLOROthiazide 25 MG TAB PO SCH (09:00)
[2019-12-25] MEDS ORDERED: FLUTICASONE FUROATE 200MCG 14 PUFFS/INHALER INH SCH (09:00)
--- NOTE | 2019-12-25 09:13 | Electrocardiogram Report ---
Test Reason : Blood Pressure : / mmHG Vent. Rate : 062 BPM Atrial Rate : 062 BPM P-R Int : 172 ms QRS Dur : 086 ms QT Int : 384 ms P-R-T Axes : 046 026 060 degrees QTc Int : 389 ms Sinus rhythm with occasional Premature ventricular complexes Otherwise normal ECG When compared with ECG of 24-DEC-2019 14:14, (unconfirmed) Premature ventricular complexes are now Present Confirmed by Hamlet Samuel ([id number]) on 12/25/2019 9:13:29 AM Referred By: REFERRED SELF Confirmed By:Hamlet Samuel
--- NOTE | 2019-12-25 11:22 | Discharge Summary ---
Date of Service December 25, 2019 Admission HPI Per Admitting Provider 69 female with PMH significant for AVNRT (s/p ablation 2016), asthma, low calcium with strong family history for CAD/NC presented to the emergency room with increased chest heaviness/pressure that felt as if she was unable to take a deep breath, along with associated radiation of pain to left arm and jaw. Patient states she has a history of ablation of irregular rhythm and follows locally with Dr. Dunlap. She states following her ablation she was only having palpitations approximately 3x/week and she has been experiencing this sensation 3-4 times per hour along with associated belching. She states she has a history of asthma and thought this may be related, so she tried using her ProAir HFA 1- 2x without relief of symptoms. Symptoms wax and wane and occur at both rest and with activity. No provoking or alleviating factors. Denies history of cavities, but states she did notice some increased sensation with cold liquids several days ago. Denies fever or chills, shortness, cough or sputum production. She states she has had some hoarseness of her voice but attributes this to increased mucus production with her allergies/asthma. She denies chest pain currently, but states she does have a pressure and admits to several palpitations during our conversation. ER Course: Labs only significant for mag elevated at 2.5. CXR with 6mm nodule RUL. No evidence for effusion, edema or pneumothorax. EKG NSR with age undetermined anterior infarct, 69bpm. Admission Exam Per Admitting Provider Constitutional: WD/WN, vitals as above no acute distress Eyes: PERRL, conjunctivae normal, anicteric sclerae ENMT: middle/inferior turbinates boggy post nasal drip Neck: trachea midline, no thyromegaly Respiratory: normal respiratory effort, lungs clear to auscultation Cardiovascular: Rate/Rhythm: regular rate and regular rhythm (frequent PVCs noted on monitor) Vessels: no JVD Extremities: normal capillary refill; no calf tenderness and no edema Gastrointestinal (Abdomen): normal bowel sounds, soft, nontender, no hepatosplenomegaly Musculoskeletal: no cyanosis or clubbing, extremities motor strength 5/5 Skin: no rashes, warm and dry Neurologic: patellar DTR's 2+ bilat, sensation intact Psychiatric: A+Ox3, euthymic affect Lymphatic: no cervical or axillary lymphadenopathy Principal Diagnosis Palpitations, Chest Heaviness Discharge Exam Constitutional WD/WN, vitals as above no acute distress Eyes PERRL, conjunctivae normal, anicteric sclerae ENMT Ears: no hearing impairment Nose: no external nose abnormality Neck trachea midline, no thyromegaly Respiratory normal respiratory effort, lungs clear to auscultation Cardiovascular Rate/Rhythm: regular rate and regular rhythm (PACs on monitor) Vessels: no JVD Extremities: normal capillary refill; no calf tenderness and no edema Gastrointestinal (Abdomen) normal bowel sounds, soft, nontender, no hepatosplenomegaly Musculoskeletal no cyanosis or clubbing, extremities motor strength 5/5 Skin no rashes, warm and dry Neurologic patellar DTR's 2+ bilat, sensation intact Psychiatric A+Ox3, euthymic affect Lymphatic no cervical or axillary lymphadenopathy Discharge Data Allergies Allergy/AdvReac Type Severity Reaction Status Date / Time house dust mite Allergy Intermediate Shortness Verified 12/24/19 18:05 of breath,wheezy and sneezing tetanus immune globulin Allergy Unknown ARM Verified 12/24/19 18:05 SWELLING Consultations 12/24/19 17:14 ED Decision to Admit Stat Ordered Studies 12/23 CXR 12/24 ECHO Hospital Course (1) Chest pain: * Obs tele-- question if related to increased PACs leading to afib vs gerd vs asthma. * Trop negative x 3 * GI cocktail in ER. May need PPI/OTC zantac for reflux if patient has recurrence of belching/indigestion * ECHO without acute findings * Lipid panel wnl * Lipase 238 * Discussed with patient's petrophysical engineer who recommended initiating cardizem 30mg BID (avoid BB d/t asthma) for palpitations. --> Patient reported significant improvement of symptoms and decreased frequency --> continued at 30mg BID at discharge Did not titrate further as patient with BP 107/70 Dr. Dunlap's office to be arranging outpatient monitor (2) Palpitations: * Noted increased frequency of palpitations leading to admission * Starting diltiazem as per cardiology recommendation --> discharged on cardizem 30mg BID * Telemetry revealed frequent PACs, HR 60-70bpm on monitor (3) History of cardiac radiofrequency ablation: * Follows locally with Dr. Dunlap * Discussed with cardiology as above, cardizem as above. TSH wnl (4) High cholesterol: * Continued home simvastatin 20mg of note, low dose cardizem and interaction with simvastatin for rhabdo/myositis but not overly concerned as both at low doses (5) Low calcium levels: * Follows with PCP Dr. Knight. * Continued home HCTZ 12.5mg MWF, alendronate 70mg weekly (6) Asthma: * Stable -- per patient, her inhaler did not have any result in any relief of symptoms * Continued home albuterol, flonase, singulair, asmanex (7) DVT prophylaxis: * Low risk * SCD * Lovenox SQ while inpatient Discharged home with with plans for outpatient event monitor via Dr. Dunlap's office. Follow up with Dr. Knight and Dr. Dunlap outpatient in the upcoming week. Total Time Total Time Spent Total Time Spent (In Minutes): 60 Discharge Plan Discharge Items Patient Disposition: Home - Self-Care Reason For Visit: CHEST HEAVINESS,PALPITATIONS Discharge Diagnosis: Palpitations Goals: You have been hospitalized for an acute medical problem. During your stay at [facility], we have made an effort to correct the problem that brought you to the hospital while keeping you as comfortable as possible. Medications were used to bring your condition under control and your discharge instructions will include directions for any medications you should take after leaving the hospital. Please make sure you see your Primary Care Provider as part of your follow up plan. Activity: Resume your previous activity Non-emergency contact: Primary Care Provider and Chief Engineer Call non-emergency contact if: you have any medication questions Follow-up/Referrals: Eze Knight MD [Primary Care Provider] - Aba Dunlap DO [Physician] - (1 week ) Diet: Heart Healthy Addtl Attending Provider Instructions: You have been hospitalized for increase palpitations and chest pressure. Labs were negative for acute damage to the heart and EKG showed "extra beats". You were started on Diltiazem 30mg by mouth twice daily to help with these palpitations, given your history of asthma and that we would want to avoid a beta-gladis. Given the improvement of symptoms and normal ECHO (ultrasound of your heart), it is determined that you will be sent home on the 30mg by mouth twice daily as we would want to avoid increasing further and causing a drop in your blood pressure. A prescription has been sent to your pharmacy. Please note that simultaneous use of your cholesterol agent (simvastatin) can interact with this medication and cause what's called "rhabdomyolysis" which is usually aches/pains/muscle cramps. If you experience any of those symptoms please call your PCP office immediately. Dr. Dunlap's office will call you regarding setting up an event monitor to see if you are going in and out of afib or if your symptoms are directly related. You should follow up with his office in the next week. A small pulmonary nodule was seen on chest x-ray and a non-emergent follow up CAT scan is recommended and can be done outpatient. Please follow up with Dr. Knight in the next 5-7 days to monitor your progress. If you continue to experience any belching or reflux symptoms, please readdress this. You may benefit from a proton pump inhibitor, but you may find benefit from over the counter zantac or pepcid. Please return to the emergency room with any worsening of palpitations, chest pain/tightness, shortness of breath or for any other symptoms that are concerning for you. It has been a pleasure being a part of the medical team providing for you during your hospitalization. Take care! Pending Studies at Discharge: No Stand-Alone Forms: My [facility] Medications and DC Order Prescriptions: New diltiazem HCl 30 mg Tablet 30 mg PO BID 30 Days Qty: 60 RF: 0 Continued alendronate 70 mg tablet 70 mg PO WK RF: 0 simvastatin 20 mg tablet 20 mg PO HS RF: 0 montelukast 10 mg tablet 10 mg PO HS RF: 0 fluticasone propionate [Flonase Allergy Relief] 50 mcg/actuation [place],Suspension 2 spray INTRANASAL HS RF: 0 Asmanex Twisthaler 220 mcg/ actuation (60) aerosol powdr breath activated 1 inh INHALATION BID RF: 0 hydrochlorothiazide 12.5 mg Tablet 12.5 mg PO 3XWK RF: 0 cholecalciferol (vitamin D3) [Vitamin D3] 50 mcg (2,000 unit) Capsule 2,000 unit PO QAM RF: 0 Discontinued loratadine 10 mg Tablet 10 mg PO QPM RF: 0 Discharge Orders: Discharge Order (Routine); Ordered 12/25/19 Ordered By: Jaleesa Ludwig Admission Data Admit Date/Time: 12/24/19 18:19 Attending Provider: Eze Rosenthal Admit Provider: Freda Arriola Primary Care Provider: Eze Knight Other Providers: Freda Arriola Other Interventions: Discharge Summary Assessment (RN) Last Done: 12/25/19 13:07 DC Date/Time DO NOT enter until pt leaves facility: 12/25/19 14:00 Supervising Physician Co-Signing Physician Notes Attending Attestation and Discharge Note: Pt seen/examined, chart reviewed, discharge care plan d/w PA Jaleesa Ludwig. I agree w/ the nava components of her documentation. 69yo female with h/o AVNRT s/p ablation, HTN, hypocalcemia who presented with various chest symptoms including frequent palpitations and chest heaviness. Echo with EF 70%. Tele with PVCs. Trop neg x 3. Ms Ludwig spoke with her primary petrophysical engineer, Dr Dunlap, and plan was for outpatient 30-day event monitor as well as an increase in diltiazem 30mg BID. Discharge exam: gen - NAD neck - no JVD heart - RRR, s1 s2, no murmur lungs - CTA b/l abd - soft NT ND BS+ ext - no edema Of note - calcium, magnesium, and potassium levels were not low while hospitalized. Eze Rosenthal MD Coding Level of Care Code 24144 OBS Care - Discharge Diagnoses Chest pain R07.9 Chest pain type: unspecified Palpitations R00.2 History of cardiac radiofrequency ablation Z98.890 High cholesterol E78.00 Low calcium levels E83.51 Asthma J45.909 DVT prophylaxis Z29.9
[2019-12-29] MEDS ORDERED: ALENDRONATE SODIUM 70 MG TAB PO SCH (06:30)
== END 2019-12-25 14:00 | disposition home or self-care (01) ==
LOC: 2S 13:56 → ED 13:56 → SUATTDRO 18:19 → 2S 20:25

== ENCOUNTER 2024-08-13 07:19 | Observation (INO) ==
--- NOTE | 2024-07-22 11:24 | PAT Medication Instructions ---
Medication Instructions Date of Service July 22, 2024 Home Medications cholecalciferol (vitamin D3) 50 mcg (2,000 unit) capsule (Vitamin D3) 2,000 unit PO QAM fluticasone propionate 50 mcg/actuation nasal spray,suspension (Flonase Allergy Relief) 2 spray intranasal PM hydrochlorothiazide 12.5 mg tablet 12.5 mg PO 3XWK mometasone 220 mcg/actuation(60 doses) breath activated powder inhaler (Asmanex Twisthaler) 1 inh inhalation BID montelukast 10 mg tablet 10 mg PO HS albuterol sulfate 90 mcg/actuation aerosol inhaler 2 puff inhalation Q6H PRN Wheezing atorvastatin 20 mg tablet 20 mg PO HS diltiazem HCl 30 mg tablet 30 mg PO BID latanoprost 0.005 % eye drops 1 drp ophthalmic (eye) PM slippery elm bark 400 mg capsule 400 mg PO DAILY PRN Gastrointestinal Spasms Or Cramping Glucosamine Chondroitin 1 tab PO BID loratadine 10 mg tablet (Allergy Relief (loratadine)) 10 mg PO DAILY STOP taking 2 weeks before surgery (or as soon as possible if surgery is within 2 weeks) slippery elm bark 400 mg capsule 400 mg PO DAILY PRN Gastrointestinal Spasms Or Cramping Glucosamine Chondroitin 1 tab PO BID DO NOT take the morning of surgery cholecalciferol (vitamin D3) 50 mcg (2,000 unit) capsule (Vitamin D3) 2,000 unit PO QAM hydrochlorothiazide 12.5 mg tablet 12.5 mg PO 3XWK loratadine 10 mg tablet (Allergy Relief (loratadine)) 10 mg PO DAILY Take morning of surgery With a small sip of water, OTHERWISE NOTHING TO EAT OR DRINK AFTER MIDNIGHT: mometasone 220 mcg/actuation(60 doses) breath activated powder inhaler (Asmanex Twisthaler) 1 inh inhalation BID albuterol sulfate 90 mcg/actuation aerosol inhaler 2 puff inhalation Q6H PRN Wheezing (use if needed; please bring rescue inhaler with you to hospital day of surgery if possible) diltiazem HCl 30 mg tablet 30 mg PO BID Take evening before surgery fluticasone propionate 50 mcg/actuation nasal spray,suspension (Flonase Allergy Relief) 2 spray intranasal PM mometasone 220 mcg/actuation(60 doses) breath activated powder inhaler (Asmanex Twisthaler) 1 inh inhalation BID montelukast 10 mg tablet 10 mg PO HS albuterol sulfate 90 mcg/actuation aerosol inhaler 2 puff inhalation Q6H PRN Wheezing (if needed) atorvastatin 20 mg tablet 20 mg PO HS diltiazem HCl 30 mg tablet 30 mg PO BID latanoprost 0.005 % eye drops 1 drp ophthalmic (eye) PM Other Notes If you have any questions please call us at [phone] or [phone] or [phone] or [phone]
--- NOTE | 2024-07-26 11:35 | Anesthesiology Consultation ---
Date of Service July 26, 2024 Assessment & Plan (1) Encounter for pre-operative examination: - Infectious disease screening: Per assessment on 07/26/24- No known recent infectious disease contacts or current infectious disease symptoms. - Outpatient joint assessment: Pt currently scheduled for inpatient pathway. If surgeon requests review for outpatient joint pathway, patient is not recommended candidate for outpatient joint program from anesthesia standpoint based on available information. - Cardiology visit (01/29/24): "History of supraventricular tachycardia.. AVNRT.. H/oh cardiac radiofrequency ablation.. From my standpoint she is doing remarkably well. She has had fleeting palpitations which are likely PACs. She has no lightheadedness or dizziness. She has had no recurrence of her AV and RT post ablation. Her functional capacity is excellent on her walking on a regular basis. Her blood pressure is on the low side. She has minimal orthostatic symptoms and notes she needs to be on some hydrochlorothiazide to reduce her increased urinary calcium excretion." F/U one year. - PCP visit (07/18/24): "Revised cardiac risk index: Score [0]. This patient is a I risk for an intermediate risk surgery. The patient is medically optimized to get the proposed surgery at this time." Chart Review Chart Review: Acceptable Risk for Surgery and Patient seen in Pre Admission Testing Teaching & Discussion Pre-Anesthesia Teaching/Discussion Notes: Instructed NPO after midnight before surgery,except medications with 15 cc of water. Medication instructions provided according to the PAT guidelines. History Surgery Operation Date: 08/13/24 07:00 Proposed Procedures p Right Total Knee Arthroplasty - Edil Hilario Thomas MD Height/Weight Height: 5 ft 4.5 in Weight: 66 kg Allergies Allergy/AdvReac Type Severity Reaction Status Date / Time house dust mite Allergy Intermediate Dyspnea, Verified 07/23/24 10:59 wheezing, sneezing tetanus immune globulin Allergy Intermediate Arm Verified 07/23/24 10:59 swelling Medications Home Medications Medication Instructions Recorded Confirmed Last Taken cholecalciferol (vitamin D3) 50 2,000 unit PO QAM 12/24/19 07/19/24 02/10/21 09:30 mcg (2,000 unit) capsule (Vitamin D3) fluticasone propionate 50 2 spray intranasal PM 12/24/19 07/19/24 12/23/19 mcg/actuation nasal spray,suspension (Flonase Allergy Relief) hydrochlorothiazide 12.5 mg tablet 12.5 mg PO 3XWK 12/24/19 07/19/24 12/23/19 mometasone 220 mcg/actuation(60 1 inh inhalation BID 12/24/19 07/19/24 12/24/19 doses) breath activated powder AM DOSE inhaler (Asmanex Twisthaler) montelukast 10 mg tablet 10 mg PO HS 12/24/19 07/19/24 12/23/19 albuterol sulfate 90 mcg/actuation 2 puff inhalation Q6H PRN Wheezing 01/29/21 07/19/24 Unknown aerosol inhaler atorvastatin 20 mg tablet 20 mg PO HS 01/29/21 07/19/24 Unknown diltiazem HCl 30 mg tablet 30 mg PO BID 01/29/21 07/19/24 02/10/21 09:30 latanoprost 0.005 % eye drops 1 drp ophthalmic (eye) PM 01/29/21 07/19/24 Unknown slippery elm bark 400 mg capsule 400 mg PO DAILY PRN 01/29/21 07/19/24 Unknown Gastrointestinal Spasms Or Cramping Glucosamine Chondroitin 1 tab PO BID 06/18/23 07/19/24 Unknown loratadine 10 mg tablet (Allergy 10 mg PO DAILY 03/07/24 07/19/24 Unknown Relief (loratadine)) Past Medical History Medical History Asthma 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 Dunlap Bulging lumbar disc Cholelithiasis Under surveillance, no plan for surgical intervention at this time per patient Following with GI/general surgery Diverticular disease Gallbladder polyp History of colonic polyps Hyperlipidemia Hypertension Controlled, "resolved" Liver lesion s/p CT/MRCP, GI monitoring Osteoarthritis Sleep apnea "Mild" CPAP (compliant) Exercise / Class Metabolic Activity II 4-5 Yardwork/Stairs/Walk up hill Past Family History Family History Family/Other Diabetes Coronary heart disease Dyslipidemia COPD (chronic obstructive pulmonary disease) Hypertension Other No family history of adverse response to anesthesia Past Surgical History Surgical History History of arthroscopy Right knee History of bilateral tubal ligation History of cardiac radiofrequency ablation (2017) History of section x2 History of colonoscopy History of esophagogastroduodenoscopy (EGD) History of tonsillectomy Hx of lumpectomy B/L > benign Hx of umbilical hernia repair S/P left knee arthroscopy Status post epidural steroid injection [place] teeth extracted Past Anesthesia History No Hx of Anesthesia Complications and No Family Hx of Anesthesia Complications History of PONV No Hx of PONV and Hx of Motion Sickness Social History Smoking Status: Never smoker Do You Dip or Chew Tobacco: No Hx Alcohol Use: Yes Alcohol type: wine alcohol intake frequency: a few times a week Hx Substance Use: No substance use type: does not use Review of Systems Patient denies chest pain, shortness of breath, dyspnea on exertion, fever, chills, cough, wheezing. Physical Exam Vital Signs BP 118/79 P 62 TEMP 97.5 SP02 99%RA RESP 16 Physical Mildly decreased cervical extension range of motion. Full TMJ range of motion. TMD > 3.5 finger breaths Mallampati Score I Dentition: intact, + crowns Lungs: clear throughout to auscultation Cardiac: regular rate and rhythm, no murmurs noted Spine: normal Carotid arteries: negative bruit Extremities: no LE edema Lab Results Anesthesia Preop Results Results Anesthesia Widget: WBC 4.25 K/ul (4.8-10.8) L 07/26/24 Hgb 12.3 g/dl (12.0-16.0) 07/26/24 Hct 37.2 % (37.0-47.0) 07/26/24 Plt 164 K/uL (130-400) 07/26/24 Na 142 mmol/L (136-145) 07/26/24 K 4.2 mmol/L (3.5-5.1) 07/26/24 Cl 108 mmol/L (98-107) H 07/26/24 CO2 30 mmol/L (21-32) 07/26/24 BUN 12 mg/dl (6-23) 07/26/24 Creat 0.74 mg/dl (0.6-1.2) 07/26/24 Glucose Level 91 mg/dl (70-99(Fasting)) 07/26/24 PT 10.4 Seconds (9.0-12.0) 07/26/24 PTT 24 Seconds (21-31) 07/26/24 INR 1.0 (0.9-1.1) 07/26/24 Urine Color Yellow 07/26/24 Urine Appearance Clear (Clear) 07/26/24 Urine pH 6.5 (4.5-7.5) 07/26/24 Urine Specific [place] 1.006 (1.000-1.030) 07/26/24 Urine Protein Negative (Negative) 07/26/24 Urine Glucose (UA) Negative (Negative) 07/26/24 Urine Ketones Negative (Negative) 07/26/24 Urine Blood Negative (Negative) 07/26/24 Urine Nitrite Negative (Negative) 07/26/24 Urine Bilirubin Negative (Negative) 07/26/24 Urine Urobilinogen Negative (Negative) 07/26/24 Urine Leukocyte Esterase Negative (Negative) 07/26/24 Blood Type AB Positive 07/26/24 Antibody Screen NEGATIVE 07/26/24 Testing Electrocardiogram Date: 02/17/24 SB at 59bpm. "Otherwise normal ECG" Chest X-Ray Date: 02/17/24 Findings: + NAD Echocardiogram Date: 12/25/19 EF = >70%. LV wall motion is normal. Mild AV sclerosis. Moderate concentric LVH. Grade 1 diastolic dysfunction.
[~2024-08-13 07:19] MED LIST changes: -ASPECOTC PO; -ATROPINE SULFATE 0.1 MG/ML 5ML SYR IV PRN; -BUPIVACAINE 0.5 % 5 MG/1 ML MPF 30ML VIAL ONE; +BUPIVACAINE 0.5 % 5 MG/1 ML PF 10ML VIAL ONE; -CEFAZOLIN 1000MG IV PUSH 7.5 ML IV SCH; -CHOL1000 PO; -CLR10 PO; -EpHEDrine SULFATE INJ 50 MG/ML AMP IV PRN; -FENTANYL CITRATE INJ 50 MCG/1 ML 2 ML VIAL IV PRN; -FENTANYL CITRATE INJ 50 MCG/1 ML 2 ML VIAL ONE; -FLUT1SPR12 NAE; -HYDR25TA5 PO; -HYDROmorphone INJ 2 MG/ML SYR/VIAL IV PRN; -LACTATED RINGER'S 1000ML 1,000 ML IV SCH; -LIDOCAINE HCL 1% 20 ML VIAL ONE; -MIDAZOLAM HCL 1 MG/ML 2ML VIAL ONE; -MOME1AER5 INH; -MONT1TAB3 PO; -MULT-506 PO; -MoRPHine SULFATE 2 MG/ML CARP IV PRN; -MoRPHine SULFATE 4 MG/ML 1 ML CARP\\VIAL IV PRN; -ONDANSETRON INJ 2 MG/ML 2 ML VIAL IV PRN; -ONDANSETRON INJ 2 MG/ML 2 ML VIAL ONE; -OXYCODONE/ACETAMINOPHEN 5-325 TAB PO PRN; -PROMETHAZINE HCL INJ 12.5 MG in SODIUM CHLORIDE 0.9% 50ML 50 ML IV PRN; +ROPIVACAINE 0.5% 5 MG/ML 30 ML VIAL ONE; -SIMV20TA2 PO; -VNTHFA/IN INH
--- OUTSIDE RECORDS SUMMARY | 2024-08-13 07:30 | External Medical Summary | Continuity of Care Document ---
Author Name Unknown Organization [facility] [id number] Address [address] [place] [address] [id number] Care Team Providers Care Denitrator Operator Name Role Phone Yosi Simmons Primary Care Physician [phone] [id number] Date(s): 07/31/24 - 07/31/24 [facility] [address] [id number] [facility] [address] [place] [address] Encounter Diagnosis Right knee DJD(Discharge Diagnosis) - 07/31/24 S/P total knee arthroplasty(Discharge Diagnosis) - 08/01/24 Discharge Disposition: Home or Self Care Attending Physician: JASWANT Mata, Teodora Referring Physician: MD Martha, Edil A Allergies, Adverse Reactions, Alerts Substance Criticality Severity Reaction Reaction Severity Status tetanus immune globulin ARM SWELLING Active tetanus toxoid large local swelling Active Dust mite postive allergy test Active Immunizations Given and Recorded Vaccine Date Status Refusal Reason influenza virus vaccine, inactivated 04/23/24 Song rded influenza virus vaccine, inactivated 05/25/23 Give n influenza virus vaccine, inactivated 04/23/21 Song rded influenza virus vaccine, inactivated 05/20/20 Give n influenza virus vaccine, inactivated 05/04/19 Give n influenza virus vaccine, inactivated 04/10/18 Give n influenza virus vaccine, inactivated 04/03/17 Give n influenza virus vaccine, inactivated 05/09/16 Give n influenza virus vaccine, inactivated 05/19/15 Give n influenza virus vaccine, inactivated 05/13/14 Give n influenza virus vaccine, inactivated 05/14/13 Give n influenza virus vaccine, inactivated 04/13/12 Give n SARS-CoV-2 (COVID-19) mRNA-vacc - [id number] 04/23/24 Recorded SARS-CoV-2 (COVID-19) mRNA-vacc - [id number] 07/08/23 Recorded SARS-CoV-2 mRNA (Pfizer 12+) bivalent 04/26/22 Rec orded SARS-CoV-2 (COVID-19) mRNA BNT-162b2 vax 05/14/21 Recorded SARS-CoV-2 mRNA (ruywfwssnwn-epwj-clz) 1 03/24/21 Recorded SARS-CoV-2 (COVID-19) ChAdOx1 vaccine 09/30/20 Rec orded SARS-CoV-2 (COVID-19) ChAdOx1 vaccine 09/09/20 Rec orded zoster vaccine, inactivated 2 01/27/20 Recorded zoster vaccine, inactivated 11/16/19 Recorded pneumococcal 13-valent vaccine 03/17/16 Given pneumococcal 23-valent vaccine 12/25/14 Given pneumococcal 23-valent vaccine 07/02/09 Recorded zoster vaccine live 05/25/12 Given influenza virus vaccine, H1N1 3 06/13/09 Recorded 1Result Comment: felt fine 2Result Comment: [facility] 3Result Comment: 2021-04-21: Historical information-source unspecified Medications Albuterol (Eqv-ProAir HFA) 90 mcg/inh inhalation aerosol Start: 11/02/22 8:59:00 AM EDT, See Instructions, Disp# 25.5 g, Refills: 4, TAKE 2 PUFFS BY MOUTH, FOUR TIMES DAILY NEEDED FOR WHEEZING USE WITH SPACER, Pharmacy: [facility] Start Date: 11/02/22 Status: Ordered Asmanex Twisthaler 60 Dose 220 mcg/inh inhalation aerosol powder Start: 03/28/24 11:38:00 AM EDT, 1 puff, inhaled, bid, Disp# 3 each, Refills: 2, Pharmacy: [facility] Start Date: 03/28/24 Status: Ordered atorvastatin 20 mg oral tablet Start: 11/23/23 2:40:00 PM EDT, 1 tab, PO, qhs, Disp# 90 tab, Refills: 3, Pharmacy: [facility] Start Date: 11/23/23 Status: Ordered calcium (as carbonate) 600 mg oral tablet Start: 01/26/24 3:26:00 PM EDT, 2 tab, PO, tid, PRN: as needed for indigestion Start Date: 01/26/24 Status: Ordered cholestyramine 4 g/4.8 g oral powder for reconstitution Start: 04/26/24 6:52:00 PM EDT, 4 g =, PO, Daily, Disp# 30 each, Refills: 2, dissolve in water or juice, recommend consuming either with dinner or at bed., Pharmacy: [id number] Start Date: 04/26/24 Stop Date: 07/25/24 Status: Ordered Citrucel Start: 06/25/24 9:55:00 AM EST, 1 tablespoon dissolved in liquid po daily Start Date: 06/25/24 Status: Ordered dilTIAZem 30 mg oral tablet Start: 07/29/24 1:36:00 PM EST, 1 tab, PO, bid, Disp# 180 tab, Refills: 0, Pharmacy: [facility] Start Date: 07/29/24 Status: Ordered Flonase 50 mcg/inh nasal spray Start: 10/31/16 4:05:00 PM EDT, 2 spray, intranasal, Daily, Disp# 3 each, Refills: 4, Pharmacy: [facility] Start Date: 10/31/16 Stop Date: 01/24/18 Status: Ordered glucosamine Start: 09/02/22 9:55:00 AM EST, 1500 daily Start Date: 09/02/22 Status: Ordered hydroCHLOROthiazide 12.5 mg oral capsule Start: 11/23/23 2:41:00 PM EDT, See Instructions, Disp# 40 cap, Refills: 3, TAKE 1 CAPSULE BY MOUTH ON MONDAY, MONDAY, AND MONDAY, Pharmacy: [facility] Start Date: 11/23/23 Status: Ordered ibuprofen 200 mg oral capsule Start: 12/09/20 10:14:00 AM EDT, 3 cap, PO, qhs, Disp# 100 cap, PRN: as needed for pain, other Start Date: 12/09/20 Status: Ordered latanoprost 0.005% ophthalmic solution Start: 12/29/22 2:31:00 PM EDT, See Instructions, Disp# 5 mL, Refills: 0, INSTILL 1 DROP INTO THE RIGHT EYE DAILY, Pharmacy: [facility] Start Date: 12/29/22 Status: Ordered montelukast 10 mg oral tablet Start: 11/23/23 2:40:00 PM EDT, 1 tab, PO, qPM, Disp# 90 tab, Refills: 3, Pharmacy: [facility] Start Date: 11/23/23 Status: Ordered Slippery Elm Start: 05/31/18 12:58:00 PM EST, Slippery Elm Start Date: 05/31/18 Status: Ordered Vitamin C with Chelly Hips 1000 mg oral tablet Start: 06/26/23 3:56:00 PM EST, 1 tab, PO, Daily Start Date: 06/26/23 Status: Ordered Vitamin D3 Start: 06/21/24 8:59:00 AM EST Start Date: 06/21/24 Status: Ordered Vitamin D3 2000 intl units oral capsule Start: 03/21/18 8:29:00 AM EDT, 1 cap, PO, Daily, Disp# 100 cap, Refills: 10, given to patient Start Date: 03/21/18 Status: Ordered Mental Status 07/31/24 Barriers to Learning one year None evide nt Mandatory Health Literacy Documentation Yes Health Literacy Communication Barriers N ever Primary Language Montserratian Problem List Condition Confirmation Course Effective Dates Status H ealth Status Informant Annular tear of lumbar disc 1 Confirmed Active Asthma Confirmed Active High risk for hip fracture Confirmed Active Allergic conjunctivitis Confirmed Active Bilateral cataracts Confirmed Active Excessive daytime sleepiness Confirmed Active Nasal septal deviation Confirmed Active Diverticulosis of colon Confirmed Active Family history of colon cancer 2 Confirmed Active Family history of diabetes mellitus (DM) 3 Confirmed Active Family history of gallbladder disease in son Confirmed Active History of supraventricular tachycardia Confirmed Active Hypercalciuria Confirmed Active Ischial bursitis of left side Confirmed Active Knee pain Confirmed Active Lipoma of lower leg Confirmed Active Right lumbar radiculopathy Confirmed Active MIXED HYPERLIPIDEMIA Confirmed Active Lung nodule < 6cm on CT Confirmed Active Obstructive sleep apnea on CPAP Confirmed Active Primary open angle glaucoma (POAG) of right eye, mild stage Confirmed Active Right knee DJD Confirmed Active Osteopenia Confirmed Active Palpitations 4 Confirmed Active H/O cardiac radiofrequency ablation Confirmed Active Protrusion of lumbar intervertebral disc Confirmed Active Degenerative tear of meniscus of right knee Confirmed Active TUBAL LIGATION STATUS 5 Confirmed Active Varicose veins of lower limb 6 Confirmed Active 1L5-S1 2father, dxed at 69 3father, paternal uncle, PGF 4single, about 3x a week, triggered by caffeine [id number], during 6some pain Diagnosis Diagnosis Type Effective Dates Health Status Clinical Service Informant Right knee DJD Discharge Diagnosis 07/31/24 S/P total knee arthroplasty Discharge Diagnosis 08/01/24 Non-Specified Procedures Procedure Date Related Diagnosis Body Site Status EGD - esophagogastroduodenos copy 1, 2, 3 05/10/24 Completed Plain X-ray of left shoulder 4 09/02/22 Completed Mammogram 5 02/16/22 Completed MRI of lumbar spine 6 12/14/20 Com pleted Colonoscopy 7, 8 09/02/20 Complete d X-ray of right knee 9 02/07/[address] of chest 10 01/09/20 Completed Chest X-ray 11 12/24/19 Completed US EXAM ABDOM COMPLETE 12 09/27/19 Completed Mammogram 13 11/12/18 Completed DEXA (dual energy X-ray phot on absorptiometry) scan of lateral spine 14 04/30/18 Completed DXA scan T score 15 04/30/18 Compl eted Removal of foreign body from hand 16 11/10/17 Completed Mammogram 17 11/08/17 Completed US scan of fingers 18 10/25/17 Com pleted Polysomnography 19 04/04/17 Comple sakshi US EXAM ABDOM COMPLETE 20 03/23/17 Completed Mammogram - screening 11/07/16 Com pleted Cardiac ablation using fluor oscopy guidance 21 05/17/16 Completed Chest x-ray 22 01/23/16 Completed Mammogram 23 11/03/15 Completed Endometrial biopsy 24 07/02/15 Com pleted Ultrasound 05/29/15 Completed Mammogram 25 10/31/14 Completed DEXA - Dual energy X-ray zonia ton absorptiometry 26 03/03/14 Completed Mammogram - screening 27 10/30/13 Completed PAP - WNL 28 02/15/13 Completed Colonoscopy 29 05/04/11 Completed colonoscopy: diverticulosis 30 05/04/11 Completed DEXA - Dual energy X-ray zonia ton absorptiometry 31, 32 01/26/11 Completed Arthroscopy of knee 33 12/19/08 Co mpleted BTL Completed c-sections x 2 Completed colposcopy/electrocautery Completed knee arthroscopy Complete d left breast lumpectomies Completed left wrist ganglion cyst rem ovals, twice Completed Mammogram 34 Completed right breast lumpectomy, benign Completed right breast scar revision Completed tonsillectomy Completed Ultrasound scan of pelvis 35, 36 Completed umbilical herniorraphy Co mpleted wisdom teeth Completed 1- Normal esophagus. - Normal stomach. Biopsied. - Normal examined duodenum. Biopsied. 2A) Duodenum, biopsy: Duodenal mucosa with no diagnostic abnormality. COMMENT: The overall villous architecture is intact and there is no evidence of significant intraepithelial lymphocytosis. B) Stomach, antrum, biopsy: Patchy mild chronic inactive gastritis. COMMENT: Due to the presence of chronic gastritis an additional immunohistochemical stain for Helicobacter pylori was performed on block B1 and [facility] and is negative. 3Followup with your referring doctor 4Impression: No acute fracture or dislocation 5Impression: There is no mammographic evidence of malignancy. A 1 year screening mammogram is recommended. 6Mild degenerative changes as described most pronounced at the L2-L3 and L4-L5 levels where there ismild central canal narrowing. No fracture or subluxation within the lumbar spine. 7- Non-bleeding internal hemorrhoids - Diverticulosis in the sigmoid colon - One 2mm polyp in the cecum, removed with a cold biopsy forceps. Resected and retrieved. - One 4mm polyp at the hepatic flexure, removed with a cold snare. Resected and retrieved. Await pathology results 8Pathology resport showed 1 tubular adenoma and benign mucosa. Repeat in 5 years. 9Moderate degenerative change. No acute process. 10impression 1. No definite correlate for the finding on chest radio graph December 24 2019 that finding was likely artifactual 2. Statble 1.1cm subpleural cystic focus within the right upprer lobe which contains a tiny 2mm nodular component. This is indeterminate although probably benign. A follow up CT in 6 months to ensurestability is recommended 3. No acute findings iwithin the chest 11Possible 6mm nodule within the right upper lobe. Follow-up nonemergent chest CT is recommended for further evaluation. 121. A few gallbladder polyps with the largest measuring 9mm. This is not significant changed compared to the prior study. One year follow-up recommended to ensure stability. 2. Otherwise, no acute process within the abdomen. 13no mammographic evidence of malignancy 14Assesment AP spine L1-L4 T-score -0.3 bone density is up to 10% below young normal Femur Neck Left T-score -1.4 osteopinic Femur Neck Right T-score -2.1 osteopenic Femur total mean T-score -1.9 osteopenic 15Z score -1.5 this patient's BMD is low for someone of this age. Patient is aware to schedule appt. 16Foreign body in skin of right middle finger: glass, fragments of benign skin, no significant inflammation. 17IMPRESSION: ACR BI-RADS CATEGORY 1: NEGATIVE There is no mammographic evidence of malignancy. A 1 year screening mammogram is recommended. The patient will receive written notification of the results. 18Foregin body in subcutaneous tissue of distal right third finger at site of concern. 19Mild MATT 20Impression: 1. There are 2 gallbladder polyps with the largest measuring 9 mm. No gallbladder wall thickening. No gallstones. 2. A 1.6 cm hyperechoic lesion within the right hepatic lobe. This is technically indeterminate butlikely represents a hemangioma. 21for SVT 22No active disease. 23There is no mammographic ecidence of malignancy 24Strips of benign inactive endometrium consistent with atrophy. Negative for hyperplasia and carcinoma. 25No malignancy. One year screening recommended. 26AP Spine L1-L4 with a T-score of -0.3. Low fracture risk. Femur Neck Left with a T-score of -1.4. Moderate fracture risk. Femur Neck Right with a T-score of -1.7. Moderate fracture risk. 27WNL 28HPV was negative 29Colonoscopy normal- Repeat in 10 years. 30repeat in 10 years 315.8% worse. 32-1.3 LS spine 33Arthoscopy , partial medial meniscectomy right knee. 34ACR BI-RADS CATEGORY 2: BENIGN No evidence of malignancy 35transabdominal and transvagina Impression: 1. A1.4cm calcified uterine fibroid is again noted. 2. Endometrial stripe is normal thickness and contains a trace amount of fluid which is unchanged. There may be a few small echogenic nodules/debris 362. (continued) within the endometrium measuring p to 3mm. Gynecologic consultation and or 3 month follow up can be performed for further evaluation. 3. The ovaries were not visualized due to overlying bowel gas. Vital Signs Most recent to oldest [Reference Range]: 1 Temperature [36.5-37.9 DegC] 36.3 DegC *LOW* (07/31/24 9:53 AM) Heart Rate 80 bpm (07/31/24 9:53 AM) Social History Social History Type Response Smoking Status Never smoked cigaret georgie Sex Female Sex Representation Female (finding) Pre-OP H & P * JASWANT Mata [place]: PERFORM Event Display: Pre-OP H & P Authored Date: [id number] Name:VLADIMIR SHAH Patient Number:[id number] :1950 Date of Service:07/31/2024 Procedure: Right total knee arthroplasty Chief Complaint L TKA pre op History of Present Illness Patient is a73 year-oldfemalepresenting today for their pre-operative history and physical examination for the above-noted surgery with Laura. Patient has had a long history of known arthritis in her knee. Shetried tomanage her symptoms with cortisone and gel injections until recentlythey started to not be as beneficial for her. She haselected to proceed with a total knee replacement. Review of Systems DeniesRecent illnesses, colds/flu, pneumonia, COVID or COVID exposures; DeniesFevers, chills, malaise; DeniesChest pain, heart palpitations; DeniesShortness of breath, cough; DeniesHeadacheor blurry vision; DeniesAbdominal pain, nausea, vomiting, diarrhea, or urinary symptoms Physical Exam Vitals & Measurements T:36.3C HR:80(Monitored) SpO2:96% General: Pt is well nourished, seated on the exam table AA&O, in NAD, calm and cooperative during exam HENT: Nontraumatic, no gross deformity, hearing and vision grossly in-tact, PERRL Heart: +S1, +S2, RRR, no murmurs appreciated Lungs: CTABL, no wheezing appreciated Focusing on the patient's rightlower extremity: 2+ DP pulse Sensation to light touch is intact Motor to the gastroc soleus, tibialis anterior, and EHL is 5/5. Able to perform straight leg raise. + Medial joint line tenderness. -Ama's Ligamentous examination exhibits: Stable Angélica 0 mm anterior translation and firm endpoint Posterior drawer stable Varus stress at5 and 30 stable Valgus stress at 5 and 30 stable -Effusion Range of motion 5- [address] Goldsmithbtained and personally interpreted OA series including bilateral hips to ankles, bilateral AP standing, Bilateral 45 degree flexion PA views, andrightknee lateral and sunrise views taken today and stored in [facility]. There ismoderate to severe degenerative changes. Medial joint space narrowing, marginal osteophytes, subchondral cysts, sclerosis, and squaring of the tibia. Patient [id number] on left [id number] Assessment/Plan 1.Right knee DJD The risks and benefits of surgery as well as the post operative course was explained and discussed with the patient. Written consent obtained. The patient's past medical history, surgeries, social history, medication list, allergies and PDMP were reviewed and confirmed with the patient. Patientobt ainedmedical clearance. Patient had an appointment with anesthesia.Preoperative orders were placed. We discussed postoperative pain medications includingoxycodone, tylenol,as well as icing and elevating to control pain. We discussed post operative DVT prophylaxis,ASA 81mg BID x 6 weeks,SAKSHI stockings x 3 weeks. Patientmay needthe following additional medications after surgery -stool softener as needed to prevent constipation while on narcotics, Multi-vitamin OR Vitamin C 500mgBID x 2 weeks, Iron 324mg BID x 2 weeks to promote healing. The patient has been scheduled for post operative appointments. Home health and PT prescription were placed today. She will do PTwithus. She will needa walker.The patient was given a preoperative booklet and we reviewed the mostpertinent things leading up to the surgery and the day of surgery; including any assisted devices pt may need, when/who to call for the surgery time, where to arrive the day of surgery, NPO after midnight, medications to hold, prepping the skin with CHG to prevent infection etc. All of their questions and concerns were answered today. They were instructed to call our office if they have any further questions or concerns. 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 Bilateral cataracts Degenerative tear of meniscus of right knee Diverticulosis of colon Excessive daytime sleepiness Family history of colon cancer Family history of diabetes mellitus (DM) Family history of gallbladder disease in son H/O cardiac radiofrequency ablation High risk for hip fracture History of supraventricular tachycardia Hypercalciuria Ischial bursitis of left side Knee pain Lipoma of lower leg Lung nodule < 6cm on CT MIXED HYPERLIPIDEMIA Nasal septal deviation Obstructive sleep apnea on CPAP Osteopenia Palpitations Primary open angle glaucoma (POAG) of right eye, mild stage Protrusion of lumbar intervertebral disc Right knee DJD Right lumbar radiculopathy TUBAL LIGATION STATUS Varicose veins of lower limb Resolved Leukopenia Medicare annual wellness visit, subsequent Paroxysmal SVT (supraventricular tachycardia) Pre-op exam Snoring Procedure/Surgical History EGD - esophagogastroduodenoscopy| Service Date: 4Plain X-ray of left shoulder| Service Date: 09/02/2022Mammogram| Service Date: 02/16/2022MRI of lumbar spine| Service Date: 12/14/2020olonoscopy| Service Date: 09/02/2020X-ray of right knee| Service Date: 02/07/2020CT of chest| Service Date: 01/09/2020Chest X-ray| Service Date: 12/24/2019US EXAM ABDOM COMPLETE| Service Date: 09/27/2019Mammogram| Service Date: 11/12/2018DXA scan T score| Service Date: 04/30/2018DEXA (dual energy X- ray photon absorptiometry) scan of lateral spine| Service Date: 018Removal of foreign body from hand| Service Date: 11/10/2017Mammogram| Service Date: 11/08/2017US scan of fingers| Service Date: 10/25/2017Polysomnography| Service Date: 04/04/2017USEXAM ABDOM COMPLETE| Service Date: 03/23/2017Mammogram - screening| Service Date: 11/07/2016Ca rdiac ablation using fluoroscopy guidance| Service Date: 05/17/2016Chest x- ray| Service Date: 01/23/2016Mammogram| Service Date: 11/03/2015Endometrial biopsy| Service Date: 07/02/2015Ultrasound| Service Date: 05/29/2015Mammogram| Service Date: 10/31/2014DEXA - Dual energy X- ray photon absorptiometry| Service Date: 03/03/2014Mammogram - screening| Service Date: 10/30/2013PAP - WNL| Service Date: 02/15/2013Colonoscopy| Service Date: 05/04/2011colonoscopy: diverticulosis| Service Date: 05/04/2011DEXA - Dual energy X-ray photon absorptiometry| Service Date: 01/26/2011rthroscopy of knee| Service Date: 12/19/2008left wrist ganglion cyst removals, twicecolposcopy/electrocauterywisdom teethright breast scar revisionright breast lumpectomy, benignknee arthroscopyBTLc- sections x 2umbilical herniorraphytonsillectomyleft breast rick mpectomiesUltrasound scan of pelvisMammogram Medications Home albuterol(Albuterol (Eqv-ProAir HFA) 90 mcg/inh inhalation aerosol), See Instructions, 4 refills ascorbic acid(Vitamin C with Chelly Hips 1000 mg oral tablet), 1000 mg= 1 tab, PO, Daily atorvastatin(atorvastatin 20 mg oral tablet), 1 tab, PO, qhs, 3 refills calcium carbonate(calcium (as carbonate) 600 mg oral tablet), 1200 mg= 2 tab, PO, tid, PRN cholecalciferol(Vitamin D3) cholecalciferol(Vitamin D3 2000 intl units oral capsule), 2000 Int_Unit= 1 cap, PO, Daily, 10 refills cholestyramine(cholestyramine 4 g/4.8 g oral powder for reconstitution), 4 g, PO, Daily, 2 refills dilTIAZem(dilTIAZem 30 mg oral tablet), 1 tab, PO, bid fluticasone nasal(Flonase 50 mcg/inh nasal spray), 2 spray, intranasal, Daily, 4 refills glucosamine hydroCHLOROthiazide(hydroCHLOROthiazide 12.5 mg oral capsule), See Instructions, 3 refills ibuprofen(ibuprofen 200 mg oral capsule), 600 mg= 3 cap, PO, qhs, PRN latanoprost ophthalmic(latanoprost 0.005% ophthalmic solution), See Instructions methylcellulose(Citrucel) mometasone(Asmanex Twisthaler 60 Dose 220 mcg/inh inhalation aerosol powder), 1 puff, inhaled, bid montelukast(montelukast 10 mg oral tablet), 1 tab, PO, qPM, 3 refills unknown medication(Slippery Elm) Allergies Dust mitepostive allergy test tetanus immune globulinARM SWELLING tetanus toxoidlarge local swelling Social History Smoking Status Never smoked cigarettes Alcohol - No Risk Use:Current Type:Wine Frequency:3-5 times per week Average drinks per episode in last year:1 Employment/School Status:Retired Exercise - Regular exercise Duration (average number of minutes):35 Times per week:5-6 times/week Self assessment:Good condition Exercise type:Walking Home/Environment - No Risk Lives with:Spouse Living situation:Home/Independent Other - Comments: [place] Substance Abuse - Denies Substance Abuse Tobacco - Denies Tobacco Use Use:Never smoker Family History ASCVD (arteriosclerotic cardiovascular disease)...: Sister. Atrial fibrillation: Sister and Brother. Cholecystectomy: Son. Cigarette smoker: Mother, Sister and Brother. Colon cancer..: Father (Dx at 69 years). DVT - Deep vein thrombosis of lower limb: Sister. Dementia: Brother and Brother (Dx at 76 years). Diabetes: Father, MGF and Maternal Uncle. Gout: Father. Heart Failure: Father. Heart attack: Father and Brother. Heart disease: Mother. High Blood Pressure: Father, Brother and Brother. Hypertension: Brother, Brother and Son. Obesity: Mother. Pacemaker: Brother. Pacemaker rhythm: Father and Brother (Dx at 76 years). Prostate carcinoma: Brother and Brother. Stroke: MGF and MGM. Total knee joint prosthesis: Brother. Varicose veins: Sister. Health Status Family Member(s) Family Member(s) Relationship: Mother, Age: 61 Years, Cause: sepsis, after leg amputation, smoker Relationship: Father, Age: 71 Years, Cause: RI Relationship: Brother, Age: 67 Years, Cause: RI Immunizations Vaccine Date Status influenza virus vaccine, inactivated 04/23/2024 Recorded SARS-CoV-2 (COVID-19) mRNA-vacc - [id number] 04/23/2024 Recorded SARS-CoV-2 (COVID-19) mRNA-vacc - [id number] 07/08/2023 Recorded influenza virus vaccine, inactivated 05/25/2023 Given SARS-CoV-2 mRNA (Pfizer 12+) bivalent 04/26/2022 Recorded SARS-CoV-2 (COVID-19) mRNA BNT-162b2 vax 05/14/2021 Recorded influenza virus vaccine, inactivated 04/23/2021 Recorded SARS-CoV-2 mRNA ([id number]) 03/2021 Recorded Comments : felt fine SARS-CoV-2 (COVID-19) ChAdOx1 vaccine 09/30/2020 Recorded SARS-CoV-2 (COVID-19) ChAdOx1 vaccine 09/09/2020 Recorded influenza virus vaccine, inactivated 05/20/2020 Given zoster vaccine, inactivated 01/27/2020 Recorded Comments : [facility] zoster vaccine, inactivated 11/16/2019 Recorded influenza virus vaccine, inactivated 05/04/2019 Given influenza virus vaccine, inactivated 04/10/2018 Given influenza virus vaccine, inactivated 04/03/2017 Given influenza virus vaccine, inactivated 05/09/2016 Given pneumococcal 13-valent vaccine 03/17/2016 Given influenza virus vaccine, inactivated 05/19/2015 Given pneumococcal 23-valent vaccine 12/25/2014 Given influenza virus vaccine, inactivated 05/13/2014 Given influenza virus vaccine, inactivated 05/14/2013 Given zoster vaccine live 05/25/2012 Given influenza virus vaccine, inactivated 04/13/2012 Given pneumococcal 23-valent vaccine 07/02/2009 Recorded influenza virus vaccine, H1N1 06/13/2009 Recorded Comments : 2021-04-21: Historical information-source unspecified Electronic Signature on File Electronically Reviewed/Signed by: Teodora Mata PA-C Author Signature Dt/Tm:07/31/2024 10:46 AM Physician Administrative Aide, Dept. of Orthopaedics and Sports Medicine [facility] [address] Electronically Reviewed/Signed by: Edil Thomas MD Cosigner Signature Dt/Tm: 07/31/2024 05:00 PM [facility] Craps Manager Department of Orthopaedics and Rehabilitation [facility] [address], [place] [address] Patient Care team information Care Team Personnel Name: DO Ward Amanda Position: Resident Member Role: Lifetime Relationship Address: [address] [place] [id number] [place] Name: DO Sanches Sameer Position: Resident Member Role: Lifetime Relationship Address: [address] [place] [id number] [place] Name: MD Simmons Joseph P Position: Physician - Family Med Member Role: Primary Care Provider Address: [address] [place] [address] [place] Care Team Related Persons Name: DEBI SHAH"
[2024-08-13] MEDS: LR 60ML/HR IV SCH (08:00)
[2024-08-13] MEDS: CeleBREX 200 MG CAP PO SCH (08:01)
[2024-08-13] MEDS: ACETAMINOPHEN 500 MG TAB PO SCH ×2 (08:01→14:51)
[2024-08-13] MEDS ORDERED: fentaNYL citrate PF 100 MCG/2 ML VIAL ONE (09:19)
--- NOTE | 2024-08-13 09:24 | History & Physical Bridge Note ---
Date of Service August 13, 2024 History & Physical Bridge Note I have examined the patient, reviewed the History & Physical and in the interval since the performance of the History & Physical I have noted the following changes of clinical significance: no changes noted
[2024-08-13] MEDS ORDERED: ATROPINE SULFATE 0.1 MG/ML 10ML SYR IV PRN (09:26)
[2024-08-13] MEDS ORDERED: ePHEDrine sulfate 50 MG/ML AMP IV PRN (09:26)
[2024-08-13] MEDS ORDERED: PROPOFOL IV EMULSION 10 MG/ML 100 ML VIAL IV ONE ×2 (09:32→09:47)
[2024-08-13] MEDS ORDERED: MIDAZOLAM HCL 1 MG/ML 2ML VIAL ONE (09:42)
[2024-08-13] MEDS: TRANEXAMIC ACID 1,000 MG **IV Pre-op IV SCH (09:46)
[2024-08-13] MEDS: ceFAZolin 2000MG 2,000 MG/15 ML SYR IV SCH ×2 (10:01→18:39)
[2024-08-13] MEDS: ROPIV 0.5% 246mg, Ketorolac 30mg, EPINEPHrine 0.5mg in NSS INFIL SCH (10:33)
[2024-08-13] MEDS: ORTHO JOINT ANESTHETIC ONE (10:34)
[2024-08-13] MEDS ORDERED: PHENYLEPHRINE HCL 10 MG/ML VIAL ONE (11:32)
[2024-08-13] MEDS: TRANEXAMIC ACID 1,000 MG **IV Intra-op IV SCH (11:46)
[2024-08-13] MEDS ORDERED: PROPOFOL IV EMULSION 10 MG/ML 20 ML VIAL IV ONE (11:51)
--- NOTE | 2024-08-13 12:10 | Operative Report ---
Post Operative Report Pre & Post Diagnosis Operation Date: 08/13/24 09:50 Pre-Op Diagnosis: Right Total Knee Arthroplasty Post-Op Diagnosis: Right Total Knee Arthroplasty I identified the patient and participated in the time-out.: Yes Procedure Operation Date: 08/13/24 09:50 Actual Procedures p Right Total knee replacement, imageless computer assisted navigation (Right) - Edil Thomas MD Surgeon Edil Thomas MD Bench Hand Machine Rey Mata PA-C (No fellow avail) Estimated Blood Loss 75 Findings See Below Examined Under Anesthesia: ROM -- There was 10 degrees to 120 degrees of flexion Ligamentous examination -- revealed stable Angélica, posterior drawer, varus and valgus stress at 0 and 30 degrees. [place] Grade IV changes of Patellofemoral and medial compartment, grade III changes Lateral Femoral Condyle (LFC). Fluids 1300 cc Specimens Right knee contents Anesthesia Type MAC Spinal Regional Complications none Indications This is a 73-year-old female who has clinical and radiographic findings consistent with osteoarthritis of the a right knee. I recommended that a right total knee replacement be performed. The patient understands the risks of surgery, which include but not limited to: bleeding, infection, re-operation, damage to nerves and arteries, continued knee pain, knee stiffness, DVT, and . The patient understands all these instructions and explanations, all his questions have been satisfactorily addressed and the patient has elected to proceed. Informed consent was signed. Description of Procedure IMPLANTS: 1. Femur: Triathlon #3 Right PS. 2. Tibia: Triathlon #3 [place]. 3. Insert: Triathlon #3 x 13 mm PS X3 poly. 4. Patella: Triathlon A32 x 10 mm X3 poly. 5. Palacos cement. Rey Mata PA-C is assisting with positioning, retracting, and closure due to fellow not available. Procedure: The patient was taken to the Operating Room and placed in the supine position after spinal and adductor canal nerve block was administered. My initials and a multidisciplinary time-out were used to identify the right leg as the correct operative limb. A tourniquet was placed high in the thigh. Prior to the incision, 2 grams of intravenous Ancef were given. One g of TXA was given pre- operatively and another after the tourniquet was released. The right leg was then prepped and draped in a standard sterile fashion. An Esmarch was used to exsanguinate the leg and the tourniquet was inflated to 250 mmHg. The planned mid-line 20 cm incision was created exposing the extensor mechanism. The medial parapatellar arthrotomy was made and the patella was everted. The patella was addressed first. It was prepared by reaming from 24 mm down to 13 mm. An A32 button was found to fit best. The peg holes were made in the standard fashion. The femur was addressed next and using computer assisted OrthoAlign with 3 degrees of flexion and 0 degrees of valgus, removing 10 mm in the standard fashion for the distal cut. The cut was made and the 4-in-1 cutting block for a size 3 femur was placed. These cuts and the cuts to place the box were made in the standard fashion. The distal peg were created after testing knee stability with trial components in and using the trial femur as a guide in the standard fashion. Our attention was then drawn to the tibia cut with using imageless computer assisted OrthoAlign, taking 4 mm from the medial high side. There was sufficient extension and flexion gap to fit a 13 mm spacer. A #3 Tibial baseplate fit well. A trial with a 13 mm spacer showed excellent stability in both flexion and extension, with good ligament balance, and thumbs free patellar tracking. Range of motion of 0-130 degrees. The tibial baseplate was prepped for the keel and stem.All components were removed. 90 ml of total knee cocktail were injected into the soft tissues and periosteum. All surfaces were copiously irrigated prior to placement of the components. The Tibial baseplate component followed by Femoral were cemented in place and a 13 mm trial placed. Next, the patellar button was placed using the same cement. Once the cement had cured, the range of motion and stability were unchanged. The 13 mm X3 poly was placed. Again, the range of motion and stability were unchanged. The tourniquet was deflated. Hemostasis was obtained. Another 1g TXA was given. The extensor mechanism was closed with 1-0 Vicryl and 0 Stratafix with the knee bent approximately 60 degrees in a standard fashion. The peritenon and deep fascia was closed with 2-0 Vicryl. The subcutaneous layer was closed with 3-0 Vicryl. The skin was closed with Zipline and shield. The limb was cleaned and dried. 4x4 dressing was placed over top followed by ABDs, sterile Webril, and a foot to thigh Prosper bandage. The patient was then transferred to the Recovery Room in stable condition. The sponge and needle counts were correct. POST-OP INSTRUCTIONS: The patient will be WBAT. The patient will be admitted to the hospital. Complete 24-hour course antibiotics. Labs will be obtained during the stay. DVT prophylaxis will include aspirin for 6 weeks, TEDs, and mechanical foot pumps. The dressing will be changed postop day #2-3 and covered with a Silverlon dressing. I attest to the content of the Intraoperative Record and any orders documented therein. Any exceptions are noted below.
--- NOTE | 2024-08-13 12:10 | Post Operative Brief Note ---
Immediate Post Op Note Date of Surgery August 13, 2024 Pre & Post Diagnosis Operation Date: 08/13/24 09:50 Pre-Op Diagnosis: Right Total Knee Arthroplasty Post-Op Diagnosis: Right Total Knee Arthroplasty I identified the patient and participated in the time-out.: Yes Procedure Operation Date: 08/13/24 09:50 Actual Procedures p Right Total Knee Arthroplasty(Right) - Edil Thomas MD Surgeon Edil Thomas MD Branding Specialist Rey Mata PA-C (No fellow avail) Estimated Blood Loss 75 Findings Consistent with Post-Op Diagnosis Fluids 1300 cc Specimens Right knee contents Anesthesia Type MAC Spinal Regional Complications none
--- NOTE | 2024-08-13 12:59 | XRay Report ---
XR knee RT 1 or 2V routine CLINICAL HISTORY: Postoperative evaluation. COMPARISON: Right knee radiographs June 04, 2024. FINDINGS: Alignment of the total right knee arthroplasty is anatomic. There is no periprosthetic fra cture or unexpected radiopaque foreign body. IMPRESSION: Expected findings following total right knee arthroplasty. ACT 112: Negative or not required by law. Electronically signed by: Felix Melendez M.D. 08/13/2024 12:58 PM
--- NOTE | 2024-08-13 13:02 | Anesthesiology Progress Note ---
Date of Service August 13, 2024 Anesthesia Post Procedure Vital Signs Vital Signs: Temp Pulse Pulse Resp BP Pulse Ox O2 Del Method 08/13/24 13:00 68 16 140/74 100 Room Air 08/13/24 12:45 36.3 C L 69 15 139/73 98 Room Air 08/13/24 12:35 72 12 126/66 100 Oxymask 08/13/24 12:25 36.5 C 76 16 124/71 100 Oxymask 08/13/24 07:44 36.4 C L 67 20 147/76 H 98 Room Air O2 Flow Rate 08/13/24 13:00 08/13/24 12:45 08/13/24 12:35 9 08/13/24 12:25 9 08/13/24 07:44 Pain Intensity Right Knee: Pain Intensity: 4 Transfer of Care Handoff Completed per policy Notes Mental Status: alert / awake / arousable Patient Amnestic to Procedure: Yes Nausea / Vomiting: adequately controlled Pain: adequately controlled Airway Patency, RR, SpO2: stable & adequate BP & HR: stable & adequate Hydration State: stable & adequate Anesthetic Complications: no major complications apparent
[2024-08-13] MEDS: HYDROmorphone INJ 2 MG/ML SYR/VIAL IV PRN (13:22)
[2024-08-13] MEDS ORDERED: SLIPPERY ELM BARK PO PRN (14:11)
[2024-08-13] MEDS ORDERED: MAGNESIUM HYDROXIDE SUSP 30 ML UDC PO PRN (14:11)
[2024-08-13] MEDS ORDERED: NALOXONE HCL 0.4 MG/1 ML VIAL/CARP IV PRN (14:11)
[2024-08-13] MEDS ORDERED: diphenhydrAMINE Capsule 25 MG CAP PO PRN (14:11)
[2024-08-13] MEDS ORDERED: HYDROmorphone INJ 0.5 MG/0.5 ML SYR IV PRN (14:11)
[2024-08-13] MEDS ORDERED: METOCLOPRAMIDE HCL INJ 5 MG/ML 2 ML VIAL IV PRN (14:11)
[2024-08-13] MEDS ORDERED: bisacodyL 10 MG SUPP PR PRN (14:11)
[2024-08-13] MEDS ORDERED: ALBUTEROL HFA 8 GM INHALER INH PRN (14:11)
--- NOTE | 2024-08-13 15:56 | Orthopedic Progress Note ---
Date of Service August 13, 2024 Assessment & Plan (1) Status post total knee replacement: Plan: POD 0 s/p total knee arthroplasty WBAT with walker PT/OT Diet - regular Frequently ice and elevate with blankets stacked under ankle DVT prophylaxis: ASA 81mg BID x 6 weeks to start tomorrow AM 08/14, TEDS x 3 weeks, foot pumps while in hospital Pain control: Tylenol 1000mg q 8hrs, oxycodone 5-10mg q4-6 hrs for moderate pain, Dilaudid 0.5mg IV for severe/breakthrough pain Vitamin C and Iron supplementation BID x 2 weeks Dressing: Leave in place, will change in our clinic Discharge home with home health x 2 weeks, Anticipate discharge home tomorrow pending PT AM labs tomorrow Follow up as scheduled with [facility] for dressing change and again in 2 weeks for Zipline removal Admission and Anticipated Discharge Date Admission Date: August 13, 2024 Subjective Patient seen and examined bedside POD 0 status post right total knee arthroplasty. She says that she is overall doing well. Pain is controlled. Denies any numbness or tingling. Physical Exam Physical Exam: General: Pt laying in hospital bed AA&O, in NAD, calm and cooperative during exam Lower Extremity: Dressing in tact and not saturated. Left in place. Pt has full ROM of ankle and all 5 digits. Pt has 5/5 strength with resisted DF/PF. She is able to do a straight leg raise. Sensation intact distally to light touch. Results & Data Vital Signs (Past 12 Hours) Vital Signs Temp Pulse Pulse Resp BP Pulse Ox O2 Del Method 08/13/24 15:48 36.4 C L 62 18 135/87 98 Room Air 08/13/24 14:52 36 C L 63 16 137/78 100 Room Air 08/13/24 14:30 36.4 C L 64 14 121/79 97 Room Air 08/13/24 13:50 36.5 C 62 14 138/78 99 Room Air 08/13/24 13:30 61 12 144/71 H 93 Room Air 08/13/24 13:15 73 18 137/75 100 Room Air 08/13/24 13:00 68 16 140/74 100 Room Air 08/13/24 12:45 36.3 C L 69 15 139/73 98 Room Air 08/13/24 12:35 72 12 126/66 100 Oxymask 08/13/24 12:25 36.5 C 76 16 124/71 100 Oxymask 08/13/24 07:44 36.4 C L 67 20 147/76 H 98 Room Air O2 Flow Rate 08/13/24 15:48 08/13/24 14:52 08/13/24 14:30 08/13/24 13:50 08/13/24 13:30 08/13/24 13:15 08/13/24 13:00 08/13/24 12:45 08/13/24 12:35 9 08/13/24 12:25 9 08/13/24 07:44
[2024-08-13] MEDS: FERROUS GLUCONATE 324 MG TAB PO SCH (16:12)
[2024-08-13] MEDS: ASCORBIC ACID 500 MG TAB PO SCH (16:12)
[2024-08-13] MEDS: SENNA 8.6 MG TAB PO SCH (20:34)
[2024-08-13] MEDS: DOCUSATE SODIUM 100 MG CAP PO SCH (20:34)
[2024-08-13] MEDS: dilTIAZem HCL 30 MG TAB PO SCH (20:35)
[2024-08-13] MEDS: MONTELUKAST SODIUM 10 MG TABLET PO SCH (20:35)
[2024-08-13] MEDS: FLUTICASONE PROPIONATE NA SPR 16 GM BTL NAE SCH (20:35)
[2024-08-13] MEDS: ATORVASTATIN 20 MG TAB PO SCH (20:35)
[2024-08-13] MEDS: LATANOPROST 0.005% OP SOLN 2.5 ML BTL OP SCH (20:36)
[2024-08-13] MEDS: oxyCODONE HCL IR 5 MG TAB (IMMEDIATE RELEASE) PO PRN (23:00)
[2024-08-14 03:11] VITALS: RESP 16
[2024-08-14 07:09] VITALS: BP 110/66; PULSE 69; TEMP 98.6; O2SAT 95
[2024-08-14 07:22] LABS: Hemoglobin 10.7 g/dl (12.0-16.0); Mean Corpuscular Hemoglobin 29.8 pg (25.0-34.0); Mean Corpuscular Hgb Conc 33.4 g/dL (32.0-36.0); Mean Corpuscular Volume 89.1 fL (80.0-100.0); Mean Platelet Volume 10.2 fL (9.4-12.4); Platelet Count 137 K/uL (130-400); RDW Coefficient of Variation 12.8 % (11.5-14.5); Red Blood Count 3.59 M/uL (4.20-5.40); White Blood Count 6.63 K/ul (4.8-10.8)
[2024-08-14 07:33] LABS: Calcium 8.9 mg/dl (8.6-10.3); Creatinine Clr Calc Pharmacy 53.7 ml/min; Potassium 4.1 mmol/L (3.5-5.1)
[2024-08-14] MEDS: LORATADINE 10 MG TAB PO SCH (08:21)
[2024-08-14] MEDS: ASPIRIN 81 MG ECTAB PO SCH (08:22)
[2024-08-14] MEDS: hydroCHLOROthiazide 25 MG TAB PO SCH (08:22)
[2024-08-14] MEDS: MULTIVITAMIN TAB PO SCH (08:22)
[2024-08-14] MEDS: CHOLECALCIFEROL 25 MCG (1000 UNITS) TAB PO SCH (08:22)
[2024-08-14] MEDS: FLUTICASONE FUROATE 100MCG 14 PUFFS/INHALER INH SCH (08:23)
[2024-08-14] MEDS: ONDANSETRON INJ 2 MG/ML 2 ML VIAL IV PRN (08:56)
--- NOTE | 2024-08-14 09:24 | Orthopedic Progress Note ---
Date of Service August 14, 2024 Assessment & Plan (1) Status post total knee replacement: Plan: POD 1 s/p Right total knee arthroplasty WBAT with walker PT/OT Diet - regular Frequently ice and elevate with blankets stacked under ankle DVT prophylaxis: ASA 81mg BID x 6 weeks started, TEDS x 3 weeks, foot pumps while in hospital Pain control: Tylenol 1000mg q 8hrs, oxycodone 5-10mg q4-6 hrs for moderate pain, Dilaudid 0.5mg IV for severe/breakthrough pain Vitamin C and Iron supplementation BID x 2 weeks Dressing: Leave in place, will change in our clinic Discharge home with home health x 2 weeks. Plan for discharge home today if safe in PT and OT. Follow up as scheduled with [facility] for dressing change and again in 2 weeks for Zipline removal Discharge instructions reviewed. Will discuss findings with Dr. Thomas. Admission and Anticipated Discharge Date Admission Date: August 13, 2024 Subjective Patient is resting in chair. She did have a little lightheadedness today when getting out of bed initially with therapy. She was placed back in bed but then was able to get up. Her orthostatics and blood pressure remained stable. She also had a little nausea but no vomiting. She has otherwise been able to eat breakfast. When I am seeing her today she feels much improved. She still feels that she is able to go home today. She states that her initial feeling was more like a "hot flash". Physical Exam Musculoskeletal: Exam of her right knee: Her postoperative dressings are clean, dry and intact. She is able to straighten her leg and lift independently. Full ankle range of motion and normal strength. Distal pulses are 1+. Sensation is normal. Capillary fill is brisk. Tolerates range of motion about 70 or 80 degrees today when sitting up in her chair. Calf is nontender and supple. Results & Data Vital Signs (Past 12 Hours) Vital Signs Temp Pulse Pulse Resp BP Pulse Ox O2 Del Method 08/14/24 07:09 37 C 69 16 110/66 95 Room Air 08/14/24 03:11 36.6 C 65 16 117/68 96 Room Air 08/13/24 23:04 36.5 C 80 15 158/72 H 99 Room Air Laboratory Results 08/14/24 Range/Units 06:20 WBC 6.63 (4.8-10.8) K/ul RBC 3.59 L (4.20-5.40) M/uL Hgb 10.7 L (12.0-16.0) g/dl Hct 32.0 L (37.0-47.0) % MCV 89.1 (80.0-100.0) fL MCH 29.8 (25.0-34.0) pg MCHC 33.4 (32.0-36.0) g/dL RDW Std Deviation 42.0 (36.4-46.3) fL RDW Coeff of Miguel 12.8 (11.5-14.5) % Plt Count 137 (130-400) K/uL MPV 10.2 (9.4-12.4) fL Sodium 139 (136-145) mmol/L Potassium 4.1 (3.5-5.1) mmol/L Chloride 109 H (98-107) mmol/L Carbon Dioxide 27 (21-32) mmol/L Anion Gap 3 (3-11) BUN 13 (6-23) mg/dl Creatinine 0.81 (0.6-1.2) mg/dl Est Cr Clr Drug Dosing 53.7 ml/min eGFR 76.13 BUN/Creatinine Ratio 16.0 (10-20) Glucose 118 H (70-99(Fasting)) mg/dl Calcium 8.9 (8.6-10.3) mg/dl Diagnostic Findings Knee X-Ray 08/13/24 12:31 XR knee RT 1 or 2V routine CLINICAL HISTORY: Postoperative evaluation. COMPARISON: Right knee radiographs June 04, 2024. FINDINGS: Alignment of the total right knee arthroplasty is anatomic. There is no periprosthetic fracture or unexpected radiopaque foreign body. IMPRESSION: Expected findings following total right knee arthroplasty. ACT 112: Negative or not required by law. Electronically signed by: Felix Melendez M.D. 08/13/2024 12:58 PM
--- NOTE | 2024-08-14 09:28 | Discharge Summary ---
Date of Service August 14, 2024 Discharge Data Procedures Performed Operation Date: 08/13/24 09:50 Actual Procedures p Right Total Knee Arthroplasty(Right) - Edil Thomas MD Hospital Course (1) Status post total knee replacement: Patient was kept in observation at [facility] after undergoing an elective right total knee arthroplasty with Dr. Thomas on August 13, 2024. Surgery was performed with spinal anesthesia and a peripheral nerve block. He tolerated the procedure well without any intraoperative complications. Postoperative x-rays performed in the recovery room showed a stable right knee prosthesis. She was allowed out of bed, weight-bear as tolerated on his right lower extremity with the assistance of a walker. She was given a regular diet. She was instructed to ice and elevate the right lower extremity as frequently as possible. She was placed on aspirin 81 mg p.o. twice daily for 6 weeks for DVT prophylaxis along with SAKSHI stockings and AV impulse boots while in the hospital. Pain medication was ordered. We he was provided Tylenol 1000 mg every 8 hours, oxycodone 5 to 10 mg every 4-6 hours for pain as well as IV Dilaudid. She was given vitamin C and iron supplementation twice daily for 2 weeks after surgery to assist with postoperative anemia. Her postoperative dressing was clean, dry and intact. This was left in place and will be changed on as an outpatient. Physical therapy and Occupational Therapy evaluated the patient. She did develop some mild postoperative nausea on POD 1. She became mildly faint and this resolved with getting back into bed. Orthostatics were performed and remained stable. She was deemed safe for discharge to home. She will follow-up as scheduled tomorrow for dressing change [facility] orth[facility]. Discharge instructions were reviewed. All questions were answered. Medications were sent to the pharmacy. He may continue his home medications as instructed. He was discharged home in stable condition on August 14, 2024.
== END 2024-08-14 11:15 | disposition home health service (06) ==
LOC: 3E 07:19 → ASU 07:19